=== PATIENT | female | born 1960 | race Caucasian/White ===

== ENCOUNTER → 2020-05-03 08:16 | Outpatient (BNVA) | payer MEDICARE, MEDICAID, SELFPAY | PROVIDERS: Visit Provider Surgery | DX: R10.13 Epigastric pain (principal); R10.11 Right upper quadrant pain; R11.0 Nausea; K21.00 Gastro-esophageal reflux disease with esophagitis, without bleeding; Z98.84 Bariatric surgery status | CPT/HCPCS: 99205 ==

== ENCOUNTER 2020-05-16 15:08 | Outpatient (REF) | payer MEDICARE, MEDICAID, SELFPAY ==
--- NOTE | 2020-05-16 | MM_ITS ---
EXAMINATION: MM SCREENING DIGITAL BREAST TOMOSYNTHESIS, BILATERAL CLINICAL INFORMATION: Screening. Asymptomatic. The lifetime risk of breast cancer based on the Tyrer-Cuzick Model is 7%. COMPARISON: Mammography: 10/27/2017, 03/01/2014 TECHNIQUE: Digital breast tomosynthesis is performed in both the craniocaudal and mediolateral oblique views along with computer-aided detection (CAD). Synthesized 2D images are generated from the tomosynthesis. FINDINGS: There are scattered areas of fibroglandular density (ACR BI-RADS breast composition Category b). There are no significant masses, abnormal calcifications, or other abnormalities. Parenchymal pattern is similar to prior studies. IMPRESSION: No mammographic evidence of malignancy. ASSESSMENT: BI-RADS 1: Negative RECOMMENDATION: Routine annual mammography screening. This patient's information was entered into a reminder system with a target due date for their next mammogram.
== END 2020-05-16 15:09 | disposition home or self-care (01) ==
LOC: HO.MAMMO 15:08
PROVIDERS: PCP Internal Medicine; Visit Provider Internal Medicine
DX: Z12.31 Encounter for screening mammogram for malignant neoplasm of breast (principal)
CPT/HCPCS: 77063; 77067

== ENCOUNTER → 2020-05-25 08:12 | Outpatient (BNVA) | payer MEDICARE, MEDICAID, SELFPAY | PROVIDERS: PCP Internal Medicine; Referring Provider Internal Medicine; Visit Provider Surgery | DX: E66.9 Obesity, unspecified (principal); Z68.26 Body mass index [BMI] 26.0-26.9, adult; R10.13 Epigastric pain; K21.00 Gastro-esophageal reflux disease with esophagitis, without bleeding; Z71.3 Dietary counseling and surveillance | CPT/HCPCS: 99214 ==

== ENCOUNTER → 2020-06-20 08:06 | Outpatient (BNVA) | payer MEDICARE, MEDICAID, SELFPAY | PROVIDERS: Visit Provider Surgery | DX: E66.3 Overweight (principal); Z68.26 Body mass index [BMI] 26.0-26.9, adult; R10.13 Epigastric pain; K21.00 Gastro-esophageal reflux disease with esophagitis, without bleeding; R41.3 Other amnesia; Z98.84 Bariatric surgery status | CPT/HCPCS: Q3014 ==

== ENCOUNTER 2020-06-21 10:20 | Outpatient (REF) | payer MEDICARE, MEDICAID, SELFPAY ==
[2020-06-21 11:03] LABS: MANUAL DIFF FLAG NO
[2020-06-21 11:08] LABS: Basophils Percent Auto 0.4 % (0-2); Eosinophils Absolute Auto 0.3 X10*3/uL (0.0-0.4); Hematocrit 39.9 % (37-47); Hemoglobin 13.1 g/dl (12.0-16.0); Imm Gran Abs Auto 0.01 X10*3/uL (0.00-0.03); Imm Gran Pct Auto 0.2 % (0.0-0.4); Lymphocytes Absolute Auto 1.9 X10*3/uL (1.2-4.9); Lymphocytes Percent Auto 41.4 % (20-40); Mean Corpuscular HGB Conc 32.8 g/dl (31.0-35.0); Mean Corpuscular Volume 91.3 fL (80-98); Mean Platelet Volume 10.7 fL (9.4-12.3); Monocytes Absolute Auto 0.3 X10*3/uL (0.1-1.2); Monocytes Percent Auto 5.8 % (2-11); Neutrophils Absolute Auto 2.2 X10*3/uL (2.0-8.3); Neutrophils Percent Auto 46.2 % (45-73); Platelet Count 189 X10*3/uL (160-400); Red Blood Count 4.37 X10*6/uL (4.20-5.50); Red Cell Distribution Width 12.7 % (11.0-16.0); White Blood Count 4.7 X10*3/uL (4.8-10.8)
[2020-06-21 12:05] LABS: Folate 5.3 ng/mL (> or = 4.0); Vitamin B12 376 pg/mL (200-900)
[2020-06-21 12:29] LABS: Alanine Aminotransferase 41 U/L (0-31); Albumin Level 4.2 g/dL (3.5-5.0); Alkaline Phosphatase 92 U/L (39-117); Anion Gap 8 (12-20); Aspartate Amino Transferase 27 U/L (5-31); Bilirubin Total 0.3 mg/dL (0.0-1.0); Blood Urea Nitrogen 19 mg/dL (9-16); C Reactive Protein 0.07 mg/dL (< or = 0.50); Calcium 8.9 mg/dL (8.4-10.2); Carbon Dioxide 29 mmol/L (22-29); Chloride 108 mmol/L (96-108); Cholesterol 197 mg/dL; Estimated Glomerular Filt Rate > 60; Glucose Random 97 mg/dL (60-115); HDL Cholesterol 37 mg/dL; LDL Cholesterol Calculated 145 mg/dl; Potassium 4.1 mmol/l (3.3-5.1); Sodium 141 mmol/L (135-145); Total Protein 6.9 g/dL (6.5-8.0); Triglycerides 79 mg/dL
[2020-06-21 12:42] LABS: Estimated Average Glucose 111 mg/dL; Hemoglobin A1c % 5.5 %
[2020-06-21 12:49] LABS: TSH reflex Free T4 0.81 mIU/mL (0.32-4.0)
[2020-06-22 18:52] LABS: Calcium (PTHI) 9.2 mg/dL (8.6-10.4); PTHI 34 pg/mL (14-64)
[2020-06-23 09:57] LABS: Insulin Level Total 4.2 uIU/mL
[2020-06-26 12:22] LABS: Vitamin B1 <6 nmol/L (8-30)
[2020-06-27 18:16] LABS: Vitamin A 54 mcg/dL (38-98)
== END 2020-06-21 10:21 | disposition home or self-care (01) ==
LOC: HO.LAB 10:20
PROVIDERS: PCP Internal Medicine; Visit Provider Surgery
DX: R41.3 Other amnesia (principal); R10.13 Epigastric pain; F41.9 Anxiety disorder, unspecified; E66.3 Overweight; F32.9 Major depressive disorder, single episode, unspecified
CPT/HCPCS: 36415; 80053; 80061; 82607; 82746; 83036; 83525; 83970; 84425; 84443; 84590; 85025; 86140

== ENCOUNTER 2020-07-10 06:38 | Outpatient (REF) | payer MEDICARE, MEDICAID, SELFPAY ==
--- NOTE | 2020-07-10 06:45 | CT_ITS ---
EXAMINATION: CT ABDOMEN AND PELVIS WITH CONTRAST CLINICAL INFORMATION: Epigastric pain COMPARISON: Previous CT of the abdomen and pelvis most recent February 2020 TECHNIQUE: Multidetector volumetric images were obtained from the superior aspect of the liver through the pubic symphysis following administration 85 mL of Omnipaque 350 intravenous contrast. Sagittal and coronal reformatted images were obtained on the technologist's workstation. Oral contrast: Yes This CT examination was performed using dose optimization techniques as appropriate, variously including the following: *Automated exposure control *Adjustment of mA and/or kV according to patient size (this includes techniques or standardized protocols for targeted exams where dose is matched to indication/reason for exam; i.e. extremities or head) *Use of iterative reconstruction technique DLP: 543 mGy-cm FINDINGS: LUNG BASES: The visualized lung bases are unremarkable. LIVER, GALLBLADDER, AND BILIARY TREE: The liver is normal in size, shape, and attenuation. No focal hepatic lesion or biliary ductal dilatation is present. The gallbladder has been removed. PANCREAS: Unremarkable. SPLEEN: Unremarkable. ADRENAL GLANDS: Unremarkable. KIDNEYS AND URETERS: The kidneys are normal in size, shape, and attenuation. No hydronephrosis, hydroureter, or calculi seen. No perinephric stranding. BLADDER: Unremarkable. GASTROINTESTINAL TRACT: There are postsurgical changes to the stomach where the surgical suture line adjacent to the greater curvature of the stomach. There is question of mild wall thickening of the distal thoracic esophagus and stomach. The small bowel is unremarkable. There is a large amount of stool in the colon and mild dilatation suggestive of constipation. The appendix appears to have been removed. ABDOMINAL WALL: There are postsurgical changes to the anterior abdominal wall. No hernia is seen. LYMPH NODES: Normal. VASCULAR: Unremarkable. PELVIC VISCERA: The uterus has been removed. No pelvic mass is seen. OSSEOUS STRUCTURES: Postsurgical changes with posterior fusion hardware and disc interspace served as L4-L5. There are degenerative changes of the spine. CT/CT abdomen pelvis w con IMPRESSION: Stable postsurgical changes to the stomach with surgical suture line along the greater curvature. There is question of mild wall thickening of the distal thoracic esophagus and stomach. Constipation.
[2020-07-10] MEDS: Barium Sulfate Oral (Vanilla) 450 ML ORAL.SUSP 900 ML PO (09:25)
[2020-07-10] MEDS: iohexoL 350 MG/ML 100 ML INFUS..BTL 85 ML IV (09:26)
== END 2020-07-10 06:39 | disposition home or self-care (01) ==
LOC: HO.CT 06:38
PROVIDERS: Visit Provider Surgery
DX: R10.13 Epigastric pain (principal); R10.11 Right upper quadrant pain; Z98.84 Bariatric surgery status; Z90.3 Acquired absence of stomach [part of]
CPT/HCPCS: 74177; Q9967

== ENCOUNTER 2020-07-23 09:52 | Outpatient (REF) | payer MEDICARE, MEDICAID, SELFPAY ==
--- NOTE | 2020-07-23 09:55 | US_ITS ---
EXAMINATION: US COMPLETE ABDOMEN WITH LIVER ELASTOGRAPHY CLINICAL INFORMATION: Epigastric pain COMPARISON: CT abdomen of July 10, 2020 and ultrasound of October 27, 2017 TECHNIQUE: Real-time imaging of the abdominal viscera. Noninvasive ultrasound liver fibrosis assessment is performed using Yue ElastPQ point quantification shear wave elastography (pSWE) with a 5 MHz transducer. Multiple elastography samples are obtained. FINDINGS: PANCREAS: Normal. The visualized pancreatic head and body are normal in appearance. The remainder of the pancreas is obscured from visualization by the overlying bowel gas. ABDOMINAL AORTA: The proximal, middle, and distal aortic segments are normal in caliber. INFERIOR VENA CAVA: Visualized portions are normal. LIVER: Normal. The liver demonstrates normal size, contour and echogenicity. No focal lesion or intrahepatic biliary duct dilatation. The right lobe measures 14.8 cm in length. The left lobe measures 8.6 cm in length. There is hepatopedal blood flow seen within the main portal vein. Shear wave elastography provides a median stiffness of 0.98 m/s (reference: normal median stiffness is 0.81 - 1.22 m/s). The IQR/median stiffness to assess sampling precision is 0.14 (reference: optimal IQR/median stiffness is under 0.3). GALLBLADDER: Status post cholecystectomy. COMMON BILE DUCT: Not identified RIGHT KIDNEY: Normal. No hydronephrosis. No renal calculi or focal parenchymal lesions. The kidney measures 10.4 cm in maximum dimension. LEFT KIDNEY: Normal. No hydronephrosis. No renal calculi or focal parenchymal lesions. The kidney measures 11.1 cm in maximum dimension. SPLEEN: Normal. The spleen measures 10.7 cm in maximum dimension. FREE FLUID: None. US/US abdomen comp w elastography IMPRESSION: 1. No significant abnormality identified. 2. Elastography: Liver elastography measurements are within normal (METAVIR Stage F0).
--- NOTE | 2020-07-23 09:55 | FL_ITS ---
EXAMINATION: XR GI SERIES CLINICAL INFORMATION: Epigastric pain. COMPARISON: None TECHNIQUE: Routine upper GI air-contrast study was performed in upright and lying position. FINDINGS: Following oral administration of thin barium, there is normal perfusion of bolus from the oral cavity through the pharynx into the stomach. There is evidence of previous gastric surgery along the greater curvature. There are 2 parts to the stomach, a smaller fundus in the left epigastric region and a slightly larger stomach in the lower epigastric region. There is transient narrowing seen between the 2 stomachs or decreased peristalsis. The distal stomach, duodenal bulb and the sweep are normal caliber. There is normal peristalsis in the distal stomach. Patient does not complain of any pain in the epigastric region. In the midabdomen, patient has pain where the surgical staple is noted and marked on several images. Question source of pain. The small bowel loops are otherwise unremarkable. There is L4 and L5 disc fusion with posterior hardware. FLUOROSCOPY TIME: 3.3 minutes DOSE AREA PRODUCT: 45.125 uGy-m2 (microgray-meter squared) FL/FL upper GI series IMPRESSION: 1. Status post gastric reduction surgery. There are 2 distinct stomach pouches, a smaller one in the upper epigastric region and to the left and a slightly larger stomach in the distal epigastric region. Between the 2 stomachs, there appears to be some kind of narrowing, and slow emptying of proximal or fundal stomach. Patient has no pain in the epigastric region. 2. Patient points to pain in the mid abdomen where there is a surgical staple adjacent to the small bowel loops. Whether there are adhesions in this region, secondary to janet, I am not sure. No such abnormality was seen on the recent CT abdomen exam 2019. On CT, the staple was visualized on axial images 41 through 42/3.
== END 2020-07-23 09:53 | disposition home or self-care (01) ==
LOC: HO.US 09:52
PROVIDERS: Visit Provider Surgery
DX: Z01.818 Encounter for other preprocedural examination (principal); R10.13 Epigastric pain; E66.01 Morbid (severe) obesity due to excess calories; K21.9 Gastro-esophageal reflux disease without esophagitis; Z90.3 Acquired absence of stomach [part of]; Z98.84 Bariatric surgery status
CPT/HCPCS: 74240; 76705; 76981

== ENCOUNTER 2021-01-05 07:30 | Emergency (ER) | payer MEDICARE, MEDICAID, SELFPAY ==
--- NOTE | ~2021-01-05 | XR_ITS ---
EXAMINATION: XR CHEST CLINICAL INFORMATION: Chest pain. COMPARISON: None TECHNIQUE: Frontal view of the chest was obtained. FINDINGS: No significant abnormality is noted involving the heart, lungs, mediastinum, bony thorax or soft tissues. XR/XR chest 1V IMPRESSION: Unremarkable chest examination.
--- NOTE | ~2021-01-05 | CT_ITS ---
EXAMINATION: CT ANGIOGRAM OF THE CHEST WITH AND WITHOUT CONTRAST (CT PULMONARY ANGIOGRAM FOR PE) CLINICAL INFORMATION: Chest pain COMPARISON: Chest x-ray earlier today TECHNIQUE: Prior to contrast administration, noncontrast localization images were obtained. Subsequently, multidetector volumetric imaging was performed from the thoracic inlet to below the diaphragms following the administration of 65 mL Omnipaque 350 intravenous contrast. No contrast reaction reported Sagittal, coronal, and MIP oblique sagittal reformatted images were obtained on the CT workstation, uploaded to PACS, and reviewed. Lung parenchyma evaluation is limited due to respiratory motion artifact. This CT examination was performed using dose optimization techniques as appropriate, variously including the following: *Automated exposure control *Adjustment of mA and/or kV according to patient size (this includes techniques or standardized protocols for targeted exams where dose is matched to indication/reason for exam; i.e. extremities or head) *Use of iterative reconstruction technique Total exam dose-length product 308 mGy-cm FINDINGS: The heart is normal in size. There is no pericardial effusion. No pulmonary arterial filling defect to suggest pulmonary embolus. Nonaneurysmal thoracic aorta. No gross mediastinal lymphadenopathy. Central airways are patent. Lungs are adequately aerated. There is mild dependent opacities bilaterally suggesting atelectasis. Some mild groundglass opacities are also noted dependently within the upper lobes, nonspecific but possibly also atelectasis. There is no lobar consolidation present. No pleural effusion or pneumothorax. No suspicious pulmonary nodules. Visualized portion of the upper abdomen demonstrate postsurgical changes of the stomach. Mild to moderate degenerative changes of the spine. 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 CT/CT angio chest PE protocol IMPRESSION: 1. No pulmonary embolus. 2. Mild diffuse bilateral opacities which are primarily dependent are suspected to represent atelectasis, however, a viral infiltrate would also be within the differential. Clinical correlation is recommended. VTE: negative
--- NOTE | 2021-01-05 07:41 | ECG_ITS ---
Test Reason : CHEST PAIN Blood Pressure : / mmHG Vent. Rate : 060 BPM Atrial Rate : 060 BPM P-R Int : 198 ms QRS Dur : 082 ms QT Int : 402 ms P-R-T Axes : 020 011 021 degrees QTc Int : 402 ms Normal sinus rhythm Normal ECG When compared with ECG of 29-APR-2019 20:48, No significant change was found Referred By: Jacqueline Arellano Electronically Signed By:Thong Renae
[2021-01-05 07:43] VITALS: BP 123/86; PULSE 62; RESP 18; TEMP 36.6; O2SAT 97; BMI 26.2
--- NOTE | 2021-01-05 08:07 | ED.CHESTPAIN ---
HPI - Chest Pain General Chief Complaint: Chest Pain Stated Complaint: chest pain Time Seen by Provider: 01/05/21 08:05 Related Data Home Medications Medication Instructions Recorded Confirmed clonazepam 1 mg tablet 1 mg PO DAILY 05/02/20 fluticasone propionate 50 1 spray INTRANASAL BID 05/02/20 mcg/actuation nasal spray,suspension zolpidem 10 mg tablet 10 mg PO BEDTIME PRN 05/02/20 dicyclomine 10 mg capsule 10 mg PO BID 05/03/20 05/03/20 pantoprazole 40 mg tablet,delayed 40 mg PO DAILY 05/03/20 05/03/20 release Previous Rx's Medication Instructions Recorded sucralfate 100 mg/mL oral 10 ml PO QID 30 Days #1200 ml 05/03/20 suspension thiamine HCl (vitamin B1) 100 mg 100 mg PO DAILY #30 tab 06/29/20 tablet vitamin B12 500 mcg-folic acid 400 1 tab PO DAILY #30 tab 06/29/20 mcg tablet Allergies Allergy/AdvReac Type Severity Reaction Status Date / Time prednisone [PREDNISONE] Allergy Severe DEPRESSION/ Unverified 04/19/20 19:06 ANXIETY diphenhydramine AdvReac Intermediate TACHYCARDIA Unverified 04/19/20 19:06 [From BENADRYL] Benadryl Allergy Unknown racing Uncoded 02/10/19 00:00 heart PMFSH Past Medical History Medical History (Updated 01/05/21 @ 11:12 by Jacqueline Arellano MD) Anxiety Chronic abdominal pain Depression GERD with esophagitis Hypertension Overweight Surgical History History of back surgery History of sleeve gastrectomy Hx of cholecystectomy Hx of laparoscopic gastric banding Family History Family History (Updated 05/02/20 @ 14:25 by Hasmukh Ling CMA) Father No problems noted. Mother No problems noted. Brother No problems noted. Sister No problems noted. Son No problems noted. Daughter No problems noted. Daughter No problems noted. Social History Social History (Updated 05/03/20 @ 10:29 by Benedict Cottrell MD) Alcohol intake: never Advance Directives: No Advance Directives Information Provided: No Patient : No Physical Exam Vital Signs: Vital Signs: Last Vital Signs Temp 97.9 F 01/05/21 09:12 Pulse 51 01/05/21 10:09 Resp 17 06/05/21 10:09 BP 124/79 01/05/21 10:09 Pulse Ox 98 01/05/21 10:09 Body Mass Index 26.2 MDM - Chest Pain MDM Narrative Medical decision making narrative: Patient's well-appearing no distress positive right-sided chest pain. D-dimer elevated. Patient had previous history of gastric bypass surgery. Patient's history not consistent with ACS. Patient's troponin was negative. Patient is 60 years old normal EKG. Her heart score is less than 3. CTA of the chest was done as patient had elevated D-dimer. It was negative for any acute evidence of bacteria pneumonia. No pneumothorax no rib fractures. No PE. Question viral pneumonia. Will discharge patient home. Currently in stable condition. Lab Data Result diagrams: 01/05/21 08:16 01/05/21 08:16 Labs: Lab Results 01/05/21 01/05/21 01/05/21 Range/Units 08:16 08:16 08:16 WBC 6.3 (4.8-10.8) X10*3/uL RBC 3.95 L (4.20-5.50) X10*6/uL Hgb 12.2 (12.0-16.0) g/dl Hct 36.8 L (37-47) % MCV 93.2 (80-98) fL MCH 30.9 (27.0-33.0) pg MCHC 33.2 (31.0-35.0) g/dl RDW 12.1 (11.0-16.0) % Plt Count 188 (160-400) X10*3/uL MPV 9.7 (9.4-12.3) fL Immature Gran % (Auto) 0.2 (0.0-0.4) % Neut % (Auto) 50.4 (45-73) % Lymph % (Auto) 38.7 (20-40) % [place] % (Auto) 7.8 (2-11) % Eos % (Auto) 2.6 (0-4) % Baso % (Auto) 0.3 (0-2) % Lymph # (Auto) 2.4 (1.2-4.9) X10*3/uL [place] # (Auto) 0.5 (0.1-1.2) X10*3/uL Eos # (Auto) 0.2 (0.0-0.4) X10*3/uL Baso # (Auto) 0.0 (0.0-0.2) X10*3/uL Abs Immat Gran (auto) 0.01 (0.00-0.03) X10*3/uL Absolute Neuts (auto) 3.2 (2.0-8.3) X10*3/uL Absolute Nucleated RBC 0.000 (0.0-0.012) X10*3/uL Nucleated RBC % (auto) 0.0 (0.0-0.2) /100WBC D-Dimer 550 NG/ML Hold Blue Top SEE NOTE Sodium 142 (135-145) mmol/L Potassium 3.7 (3.3-5.1) mmol/L Chloride 107 (96-108) mmol/L Carbon Dioxide 27 (22-29) mmol/L Anion Gap 12 (12-20) BUN 13 (9-16) mg/dL Creatinine 0.76 (0.5-1.4) mg/dL Estim Creat Clear Calc 80.1 Estimated GFR > 60 Random Glucose 90 (60-115) mg/dL Calcium 9.0 (8.4-10.2) mg/dL Total Bilirubin 0.3 (0.0-1.0) mg/dL Direct Bilirubin < 0.2 (0.0-0.5) mg/dL AST 24 (5-31) U/L ALT 42 H (0-31) U/L Alkaline Phosphatase 90 (39-117) U/L Troponin I High Sens (<3.5-17.0) ng/L Total Protein 6.1 L (6.5-8.0) g/dL Albumin 3.6 (3.5-5.0) g/dL Lipase < 4 L (8-78) U/L 01/05/21 Range/Units 08:16 WBC (4.8-10.8) X10*3/uL RBC (4.20-5.50) X10*6/uL Hgb (12.0-16.0) g/dl Hct (37-47) % MCV (80-98) fL MCH (27.0-33.0) pg MCHC (31.0-35.0) g/dl RDW (11.0-16.0) % Plt Count (160-400) X10*3/uL MPV (9.4-12.3) fL Immature Gran % (Auto) (0.0-0.4) % Neut % (Auto) (45-73) % Lymph % (Auto) (20-40) % [place] % (Auto) (2-11) % Eos % (Auto) (0-4) % Baso % (Auto) (0-2) % Lymph # (Auto) (1.2-4.9) X10*3/uL [place] # (Auto) (0.1-1.2) X10*3/uL Eos # (Auto) (0.0-0.4) X10*3/uL Baso # (Auto) (0.0-0.2) X10*3/uL Abs Immat Gran (auto) (0.00-0.03) X10*3/uL Absolute Neuts (auto) (2.0-8.3) X10*3/uL Absolute Nucleated RBC (0.0-0.012) X10*3/uL Nucleated RBC % (auto) (0.0-0.2) /100WBC D-Dimer NG/ML Hold Blue Top Sodium (135-145) mmol/L Potassium (3.3-5.1) mmol/L Chloride (96-108) mmol/L Carbon Dioxide (22-29) mmol/L Anion Gap (12-20) BUN (9-16) mg/dL Creatinine (0.5-1.4) mg/dL Estim Creat Clear Calc Estimated GFR Random Glucose (60-115) mg/dL Calcium (8.4-10.2) mg/dL Total Bilirubin (0.0-1.0) mg/dL Direct Bilirubin (0.0-0.5) mg/dL AST (5-31) U/L ALT (0-31) U/L Alkaline Phosphatase (39-117) U/L Troponin I High Sens < 3.5 (<3.5-17.0) ng/L Total Protein (6.5-8.0) g/dL Albumin (3.5-5.0) g/dL Lipase (8-78) U/L ECG Data ECG #1: Interpretation: Sinus pattern heart rate was 60 NV QRS QT within normal limits is no acute ST segment elevation noted. Discharge Plan Discharge Clinical Impression: Chest pain Patient Disposition: Home, Self-Care Instructions: Chest Pain (ED) Prescriptions: No Action vitamin [id number] 500-400 mcg tablet 1 tab PO DAILY Qty: 30 RF: 2 thiamine HCl (vitamin B1) 100 mg tablet 100 mg PO DAILY Qty: 30 RF: 2 pantoprazole 40 mg tablet,delayed release (DR/EC) 40 mg PO DAILY RF: 0 dicyclomine 10 mg capsule 10 mg PO BID RF: 0 sucralfate 100 mg/mL suspension 10 ml PO QID 30 Days Qty: 1200 RF: 2 Referrals: Jayne Ozuna MD [Primary Care Provider] - 2 days
[2021-01-05] MEDS: Aspirin 81 MG TAB.CHEW 324 MG PO (08:20)
[2021-01-05 08:21] LABS: MANUAL DIFF FLAG NO
[2021-01-05 08:22] LABS: Basophils Percent Auto 0.3 % (0-2); Eosinophils Absolute Auto 0.2 X10*3/uL (0.0-0.4); Eosinophils Percent Auto 2.6 % (0-4); Hematocrit 36.8 % (37-47); Hemoglobin 12.2 g/dl (12.0-16.0); Imm Gran Abs Auto 0.01 X10*3/uL (0.00-0.03); Imm Gran Pct Auto 0.2 % (0.0-0.4); Lymphocytes Absolute Auto 2.4 X10*3/uL (1.2-4.9); Lymphocytes Percent Auto 38.7 % (20-40); Mean Corpuscular HGB Conc 33.2 g/dl (31.0-35.0); Mean Corpuscular Hemoglobin 30.9 pg (27.0-33.0); Mean Corpuscular Volume 93.2 fL (80-98); Mean Platelet Volume 9.7 fL (9.4-12.3); Monocytes Absolute Auto 0.5 X10*3/uL (0.1-1.2); Monocytes Percent Auto 7.8 % (2-11); Neutrophils Absolute Auto 3.2 X10*3/uL (2.0-8.3); Neutrophils Percent Auto 50.4 % (45-73); Platelet Count 188 X10*3/uL (160-400); Red Blood Count 3.95 X10*6/uL (4.20-5.50); Red Cell Distribution Width 12.1 % (11.0-16.0); White Blood Count 6.3 X10*3/uL (4.8-10.8)
[2021-01-05 08:32] LABS: D Dimer 550 NG/ML
[2021-01-05 09:04] LABS: Alanine Aminotransferase 42 U/L (0-31); Albumin Level 3.6 g/dL (3.5-5.0); Alkaline Phosphatase 90 U/L (39-117); Anion Gap 12 (12-20); Aspartate Amino Transferase 24 U/L (5-31); Bilirubin Direct < 0.2 mg/dL (0.0-0.5); Bilirubin Total 0.3 mg/dL (0.0-1.0); Blood Urea Nitrogen 13 mg/dL (9-16); Carbon Dioxide 27 mmol/L (22-29); Chloride 107 mmol/L (96-108); Creatinine Clr Calc Pharmacy 80.1; Estimated Glomerular Filt Rate > 60; Glucose Random 90 mg/dL (60-115); Lipase < 4 U/L (8-78); Potassium 3.7 mmol/L (3.3-5.1); Sodium 142 mmol/L (135-145); Total Protein 6.1 g/dL (6.5-8.0)
[2021-01-05 09:05] LABS: Troponin-I High Sensitivity < 3.5 ng/L (<3.5-17.0)
[2021-01-05 09:12] VITALS: BP 123/80; PULSE 65; RESP 15; TEMP 36.6; O2SAT 99
[2021-01-05] MEDS: Ketorolac Tromethamine 15 MG/ML VIAL IV (09:33)
[2021-01-05] MEDS: iohexoL 350 MG/ML 100 ML INFUS..BTL 65 ML IV (10:08)
[2021-01-05 10:09] VITALS: BP 124/79; PULSE 51; RESP 17; O2SAT 98
[2021-01-05 12:00] LABS: COVID-19 Test Negative (Negative)
== END 2021-01-05 12:12 | disposition home or self-care (01) ==
PROVIDERS: Emergency Provider Emergency Medicine Emergency Medical Services; PCP Internal Medicine
DX: R07.9 Chest pain, unspecified (principal); Z20.822 Contact with and (suspected) exposure to COVID-19
CPT/HCPCS: 36415; 71045; 71275; 80048; 80076; 83690; 84484; 85025; 85379; 87635; 93005; 96360; 99284; J1885; Q9967

== ENCOUNTER 2021-01-07 12:52 | Outpatient (REF) | payer MEDICARE, MEDICAID, SELFPAY | END 2021-01-07 12:53 | disposition home or self-care (01) | LOC: HO.LAB 12:52 | PROVIDERS: PCP Internal Medicine; Visit Provider Internal Medicine | DX: Z20.822 Contact with and (suspected) exposure to COVID-19 (principal) | CPT/HCPCS: C9803; U0003; U0005 ==

== ENCOUNTER 2022-02-18 15:45 | Outpatient (REF) | payer OTHER, MEDICAID, SELFPAY ==
--- NOTE | ~2022-02-18 | MM_ITS ---
EXAMINATION: MM SCREENING DIGITAL BREAST TOMOSYNTHESIS, BILATERAL CLINICAL INFORMATION: Screening. Asymptomatic. The lifetime risk of breast cancer based on the Tyrer-Cuzick Model is 4.5%. COMPARISON: Mammography: May 16, 2020 and studies dating back to August 23, 2013 TECHNIQUE: Digital breast tomosynthesis is performed in both the craniocaudal and mediolateral oblique views along with computer-aided detection (CAD). Synthesized 2D images are generated from the tomosynthesis. FINDINGS: There are scattered areas of fibroglandular density (ACR BI-RADS breast composition Category b). There are no significant masses, abnormal calcifications, or other abnormalities. MM/MM tomosynthesis screening BI IMPRESSION: There are no significant changes from prior study. ASSESSMENT: BI-RADS 1: Negative RECOMMENDATION: Routine annual mammography screening. This patient's information was entered into a reminder system with a target due date for their next mammogram.
== END 2022-02-18 15:46 | disposition home or self-care (01) ==
LOC: HO.MAMMO 15:45
PROVIDERS: Visit Provider Internal Medicine
DX: Z12.31 Encounter for screening mammogram for malignant neoplasm of breast (principal)
CPT/HCPCS: 77063; 77067

== ENCOUNTER 2022-02-25 09:44 | Emergency (ER) | payer OTHER, MEDICAID, SELFPAY ==
--- NOTE | ~2022-02-25 | CT_ITS ---
EXAMINATION: CT ABDOMEN AND PELVIS WITHOUT CONTRAST CLINICAL INFORMATION: Left lower quadrant pain. History of diverticulitis. COMPARISON: Prior CT exams from 02/28/2020 and 07/10/2020. TECHNIQUE: Multidetector volumetric imaging was performed from the superior aspect of the liver through the pubic symphysis. Sagittal and coronal reformatted images were obtained on the technologist's workstation. This CT examination was performed using dose optimization techniques as appropriate, variously including the following: *Automated exposure control *Adjustment of mA and/or kV according to patient size (this includes techniques or standardized protocols for targeted exams where dose is matched to indication/reason for exam; i.e. extremities or head) *Use of iterative reconstruction technique DLP: 669 mGy-cm FINDINGS: LUNG BASES: Normal. No pulmonary consolidation or pleural effusion at either lung base. LIVER: The liver has normal size, shape, and attenuation. No evidence of liver mass. GALLBLADDER AND BILIARY TREE: Gallbladder is surgically absent and there is minimal pneumobilia in the left hepatic lobe. The pneumobilia was more obvious on the prior exam from 02/20/2020. No dilated bile ducts. The common bile duct measures up to 0.7 cm transverse diameter. PANCREAS: No edema, pancreatic ductal dilatation or mass. SPLEEN: Normal. ADRENAL GLANDS: Normal. KIDNEYS AND URETERS: The kidneys have normal size and cortical thickness. No perinephric edema. There appears to be a punctate calyceal stone in the left lower pole (image [id number], series 4). No large renal calculi. No hydroureteronephrosis. BLADDER: Normal. No calculi or wall thickening. BOWEL AND PERITONEUM: Again noted are stable lines of the proximal stomach from prior gastric surgery. The stomach is underdistended. There appears to be a very small sliding-type hiatal hernia. No dilated bowel loops. No focal bowel wall thickening, mesenteric fat stranding or free fluid. No pneumoperitoneum. The appendix is surgically absent. ABDOMINAL WALL: Surgical clips of the abdominal wall. No acute findings. No hernia. VASCULATURE: Unremarkable. LYMPH NODES: No pathologic sized lymph nodes in the abdomen or pelvis. No inguinal lymphadenopathy. PELVIC VISCERA: The uterus is surgically absent. No adnexal mass. No pelvic free fluid. Phleboliths are present within the lower pelvis. SKELETAL: Chronic multilevel degenerative arthropathy of the thoracolumbar spine. Status post intervertebral fusion and instrumented posterior spinal fusion at L4-L5. There is moderate loss of disc height and vacuum disc phenomenon at L3-L4. Facet osteoarthritis and chronic minimal degenerative anterolisthesis at L5-S1. Spinal electrodes in posterior epidural space of thoracic spinal canal. The electrodes enter the canal at the T12-L1 level. CT/CT abdomen pelvis wo con IMPRESSION: * No acute imaging abnormalities in the abdomen or pelvis. No specific source of pain is identified. * No evidence of inflammatory change or obstruction along the gastrointestinal tract. * There is a punctate stone of the lower pole of the left kidney. No hydronephrosis.
[2022-02-25 09:50] VITALS: BP 129/93; PULSE 75; RESP 18; TEMP 36.8; O2SAT 97; BMI 29.9
[2022-02-25] MEDS: Ondansetron ODT 4 MG TAB.RAPDIS SUBLINGUAL (09:57)
[2022-02-25 10:27] LABS: MANUAL DIFF FLAG NO
[2022-02-25 10:28] LABS: Basophils Percent Auto 0.3 % (0-2); Eosinophils Absolute Auto 0.1 X10*3/uL (0.0-0.4); Eosinophils Percent Auto 3.6 % (0-4); Hematocrit 36.8 % (37.0-47.0); Hemoglobin 11.8 g/dl (12.0-16.0); Imm Gran Abs Auto 0.01 X10*3/uL (0.00-0.03); Imm Gran Pct Auto 0.3 % (0.0-0.4); Lymphocytes Absolute Auto 1.7 X10*3/uL (1.2-4.9); Mean Corpuscular HGB Conc 32.1 g/dl (31.0-35.0); Mean Corpuscular Hemoglobin 27.5 pg (27.0-33.0); Mean Corpuscular Volume 85.8 fL (80.0-98.0); Monocytes Absolute Auto 0.6 X10*3/uL (0.1-1.2); Neutrophils Absolute Auto 1.5 x10*3/uL (2.0-8.3); Neutrophils Percent Auto 37.8 % (45-73); Platelet Count 193 X10*3/uL (160-400); Red Blood Count 4.29 X10*6/uL (4.20-5.50); Red Cell Distribution Width 14.7 % (11.0-16.0); White Blood Count 3.9 X10*3/uL (4.8-10.8)
[2022-02-25 10:41] LABS: Alanine Aminotransferase 14 U/L (0-31); Albumin Level 4.1 g/dL (3.5-5.0); Alkaline Phosphatase 97 U/L (39-117); Anion Gap 10 (12-20); Aspartate Amino Transferase 16 U/L (5-31); Bilirubin Total 0.3 mg/dL (0.0-1.0); Blood Urea Nitrogen 11 mg/dL (9-16); Calcium 8.9 mg/dL (8.4-10.2); Carbon Dioxide 27 mmol/L (22-29); Chloride 107 mmol/L (96-108); Creatinine Clr Calc Pharmacy 76.1; Estimated Glomerular Filt Rate > 60; Glucose Random 109 mg/dL (60-115); Potassium 3.8 mmol/L (3.3-5.1); Sodium 140 mmol/L (135-145); Total Protein 6.8 g/dL (6.5-8.0)
[2022-02-25 10:48] LABS: Appearance Urine CLEAR; Color Urine YELLOW; Glucose Urine UA NEG (NEG); Leukocyte Esterase Urine NEG (NEG); Nitrite Urine NEG (NEG); Specific Gravity - Urine 1.025 (1.005-1.025); Urine Blood NEG (NEG); Urine Ketones NEG (NEG); Urine Protein NEG (NEG-TRACE)
--- NOTE | 2022-02-25 13:39 | ED_ITS ---
HPI - Abdominal Pain General Chief Complaint: Abdominal Pain Stated Complaint: Diverticulitis Time Seen by Provider: 02/25/22 13:23 Source: patient Mode of arrival: ambulatory Limitations: no limitations History of Present Illness HPI narrative: Patient comes to the emergency room complaining of 3 days of left lower quadrant pain. Patient states she has had history of diverticulitis and it feels very similar. Patient denies nausea vomiting or diarrhea, no fever chills, denies UTI symptoms Related Data Home Medications Medication Instructions Recorded Confirmed clonazepam 1 mg tablet 1 mg PO DAILY 05/02/20 02/25/22 fluticasone propionate 50 1 spray intranasal BID 05/02/20 02/25/22 mcg/actuation nasal spray,suspension (Flonase Allergy Relief) zolpidem 10 mg tablet (Ambien) 10 mg PO BEDTIME PRN 05/02/20 02/25/22 dicyclomine 10 mg capsule 10 mg PO BID 05/03/20 02/25/22 esomeprazole magnesium 40 mg 40 mg PO BID 02/25/22 02/25/22 capsule,delayed release metoclopramide HCl 5 mg tablet 5 mg PO BID 02/25/22 02/25/22 Previous Rx's Medication Instructions Recorded dicyclomine 20 mg tablet 20 mg PO BID #14 tabs 02/25/22 Allergies Allergy/AdvReac Type Severity Reaction Status Date / Time prednisone [PREDNISONE] Allergy Severe DEPRESSION/ Verified 02/25/22 09:50 ANXIETY adhesive tape AdvReac Severe Rash Verified 02/25/22 09:50 diphenhydramine AdvReac Intermediate TACHYCARDIA Verified 02/25/22 09:50 [From BENADRYL] Review of Systems Review of Systems Constitutional : No Weight loss, No Fever, No Chills, No Night Sweats, No Fatigue, No Malaise ENT/Mouth : No Hearing loss, No Ear Pain, No Nasal Congestion, No Sinus Pain, No Hoarseness, No sore throat, No Rhinorrhea, No Swallowing Difficulty Eyes: No Eye Pain, No Swelling, No Redness, No Foreign Body, No Discharge, No Vision Changes Cardiovascular : No Chest Pain, No SOB, No Dyspnea on Exertion, No Orthopnea, No Edema, No Palpitations Respiratory : No Cough, No Sputum, No Wheezing, No Smoke Exposure, No Dyspnea Gastrointestinal : No Nausea, No Vomiting, No Diarrhea, No Constipation, complaining of left lower quadrant pain, no blood/black stools Genitourinary : no irregular bleeding, No Dysuria, No Urinary Frequency, No Hematuria, No Urinary Incontinence, No Urgency, No Flank Pain, No Urinary Flow Changes, No Hesitancy Musculoskeletal : No joint pain, No Myalgias, No Joint Swelling Skin : No Skin Lesions, No rash Neuro : No Weakness, No Numbness, No Paresthesias, No Loss of Consciousness, No Dizziness, No Headache Psych : No Anxiety/Panic, No Depression, No SI/HI/AH/VH, No Social Issues, Heme/Lymph: No Bruising, No Bleeding,No Lymphadenopathy Endocrine : No Polyuria, No Polydipsia, No Temperature Intolerance [facility] Past Medical History Medical History Anxiety Chronic abdominal pain Depression GERD with esophagitis Hypertension Overweight Surgical History History of back surgery History of sleeve gastrectomy Hx of cholecystectomy Hx of laparoscopic gastric banding Family History Family History (Updated 05/02/20 @ 14:25 by Hasmukh Ling [facility]) Father No problems noted. Mother No problems noted. Brother No problems noted. Sister No problems noted. Son No problems noted. Daughter No problems noted. Daughter No problems noted. Social History Social History (Updated 05/03/20 @ 10:29 by Benedict Cottrell MD) Alcohol intake: never Advance Directives: No Advance Directives Information Provided: Yes Physical Exam ED Vital Signs: Vital Signs - 24 hr 02/25/22 09:50 02/25/22 14:00 02/25/22 15:21 Temperature 98.2 F 98.4 F Pulse Rate 75 65 60 Respiratory Rate 18 18 16 Blood Pressure 129/93 H 121/78 129/79 Pulse Oximetry 97 96 95 Oxygen Delivery Method Room Air Room Air Room Air BMI result Body Mass Index 29.9 Const Other: Appearance: Alert. Oriented X3. No acute distress. Well-appearing Eyes: Pupils equal, round and reactive to light. ENT: Pharynx normal. Neck: Normal inspection. Neck supple. No lymph nodes noted. No crepitus CVS: Normal heart rate and rhythm. Pulses normal. Normal S1 and S2 Respiratory: No respiratory distress. Breath sounds normal. No Wheezing. No rales Abdomen: Soft , tenderness to palpation in the left lower quadrant, no CVA tenderness Skin: Skin warm and dry. Normal skin color. Normal skin turgor. Extremities: No lower extremity edema. No Lacerations. No Rash Neuro: Oriented X 3. No motor deficit. No sensory deficit. Moving all extremities. No slurred speech. CN 2 through 12 grossly intact Psych: calm, cooperative, normal affect Course Course Course Narrative: Patient's labs and imaging pending Patient started baseline, CT scan does not show any acute abnormalities, patient is not having diverticulitis at this time. Patient received morphine, prochlorperazine. Previously today, patient had 1 dose of sublingual ondansetron. I discussed the lab and imaging with the patient, at this time, patient states she feels better, she declined any more nausea or pain medication. MDM - Abdominal Pain Lab Data Result diagrams: 02/25/22 10:22 02/25/22 10:22 Labs: Lab Results 02/25/22 02/25/22 02/25/22 Range/Units 10:22 10:22 10:29 WBC 3.9 L (4.8-10.8) X10*3/uL RBC 4.29 (4.20-5.50) X10*6/uL Hgb 11.8 L (12.0-16.0) g/dl Hct 36.8 L (37.0-47.0) % MCV 85.8 (80.0-98.0) fL MCH 27.5 (27.0-33.0) pg MCHC 32.1 (31.0-35.0) g/dl RDW 14.7 (11.0-16.0) % Plt Count 193 (160-400) X10*3/uL MPV 10.0 (9.4-12.3) fL Immature Gran % (Auto) 0.3 (0.0-0.4) % Neut % (Auto) 37.8 L (45-73) % Lymph % (Auto) 43.0 H (20-40) % [place] % (Auto) 15.0 H (2-11) % Eos % (Auto) 3.6 (0-4) % Baso % (Auto) 0.3 (0-2) % Lymph # (Auto) 1.7 (1.2-4.9) X10*3/uL [place] # (Auto) 0.6 (0.1-1.2) X10*3/uL Eos # (Auto) 0.1 (0.0-0.4) X10*3/uL Baso # (Auto) 0.0 (0.0-0.2) X10*3/uL Abs Immat Gran (auto) 0.01 (0.00-0.03) X10*3/uL Absolute Neuts (auto) 1.5 L (2.0-8.3) x10*3/uL Absolute Nucleated RBC 0.000 (0.0-0.012) X10*3/uL Nucleated RBC % (auto) 0.0 (0.0-0.2) /100WBC Sodium 140 (135-145) mmol/L Potassium 3.8 (3.3-5.1) mmol/L Chloride 107 (96-108) mmol/L Carbon Dioxide 27 (22-29) mmol/L Anion Gap 10 L (12-20) BUN 11 (9-16) mg/dL Creatinine 0.84 (0.5-1.4) mg/dL Estim Creat Clear Calc 76.1 Estimated GFR > 60 Random Glucose 109 (60-115) mg/dL Calcium 8.9 (8.4-10.2) mg/dL Total Bilirubin 0.3 (0.0-1.0) mg/dL AST 16 (5-31) U/L ALT 14 (0-31) U/L Alkaline Phosphatase 97 (39-117) U/L Total Protein 6.8 (6.5-8.0) g/dL Albumin 4.1 (3.5-5.0) g/dL Urine Color YELLOW Urine Appearance CLEAR Urine pH 6.0 (5.0-8.0) Ur Specific [place] 1.025 (1.005-1.025) Urine Protein NEG (NEG-TRACE) MG/DL Urine Glucose (UA) NEG (NEG) MG/DL Urine Ketones NEG (NEG) MG/DL Urine Blood NEG (NEG) Urine Nitrite NEG (NEG) Ur Leukocyte Esterase NEG (NEG) Discharge Plan Discharge Clinical Impression: Abdominal pain Patient Disposition: Home, Self-Care Instructions: Abdominal Pain (ED) Additional Instructions: Please follow-up with your primary care physician tomorrow. If you have any worsening or new symptoms, please return to the emergency room or call 911 Prescriptions: New dicyclomine 20 mg tablet 20 mg PO BID Qty: 14 0RF No Action dicyclomine 10 mg capsule 10 mg PO BID zolpidem [Ambien] 10 mg tablet 10 mg PO BEDTIME PRN clonazepam 1 mg tablet 1 mg PO DAILY fluticasone propionate [Flonase Allergy Relief] 50 mcg/actuation spray,suspension 1 spray intranasal BID Rx Instructions: administer into each nostril esomeprazole magnesium 40 mg capsule,delayed release(DR/EC) 40 mg PO BID metoclopramide HCl 5 mg tablet 5 mg PO BID
[2022-02-25 14:00] VITALS: BP 121/78; PULSE 65; RESP 18; TEMP 36.9; O2SAT 96
[2022-02-25] MEDS: Morphine Sulfate 4 MG/ML CARTRIDGE IVPUSH (15:18)
[2022-02-25] MEDS: Prochlorperazine Edisylate 10 MG/2 ML VIAL IVPUSH (15:18)
[2022-02-25 15:21] VITALS: BP 129/79; PULSE 60; RESP 16; O2SAT 95
== END 2022-02-25 16:56 | disposition home or self-care (01) ==
PROVIDERS: Emergency Provider Emergency Medicine; PCP Internal Medicine
DX: R10.32 Left lower quadrant pain (principal); E66.3 Overweight; Z68.29 Body mass index [BMI] 29.0-29.9, adult; Z90.3 Acquired absence of stomach [part of]; Z90.49 Acquired absence of other specified parts of digestive tract
CPT/HCPCS: 36415; 74176; 80053; 81003; 85025; 96374; 96375; 99202; 99284; J2270

== ENCOUNTER 2022-02-26 12:22 | Outpatient (REF) | payer OTHER, MEDICAID, SELFPAY ==
--- NOTE | ~2022-02-26 | XR_ITS ---
EXAMINATION: BILATERAL KNEE X-RAY CLINICAL INFORMATION: Pain COMPARISON: None TECHNIQUE: 3 views of each knee FINDINGS: Bone alignment is normal. No fracture or dislocation is seen. The joint spaces are normal. There is no joint effusion. XR/XR knee RT 3V IMPRESSION: Unremarkable exam.
--- NOTE | ~2022-02-26 | XR_ITS ---
EXAMINATION: BILATERAL SHOULDER X-RAY CLINICAL INFORMATION: Pain COMPARISON: None TECHNIQUE: 4 views of each shoulder FINDINGS: Right: Bone alignment is normal. No fracture or dislocation is seen. The glenohumeral joint is normal. There is arthritis at the acromioclavicular joint. There are degenerative changes of the greater tuberosity with some increased sclerosis and cystic changes. Soft tissues are unremarkable. Left: Bone alignment is normal. No fracture or dislocation is seen. The glenohumeral joint is normal. There is arthritis at the acromioclavicular joint. There are degenerative changes of the greater tuberosity with some increased sclerosis and cystic changes. Soft tissues are unremarkable. XR/XR shoulder LT min 2V IMPRESSION: Bilateral degenerative changes.
--- NOTE | ~2022-02-26 | XR_ITS ---
EXAMINATION: BILATERAL KNEE X-RAY CLINICAL INFORMATION: Pain COMPARISON: None TECHNIQUE: 3 views of each knee FINDINGS: Bone alignment is normal. No fracture or dislocation is seen. The joint spaces are normal. There is no joint effusion. XR/XR knee LT 3V IMPRESSION: Unremarkable exam.
--- NOTE | ~2022-02-26 | XR_ITS ---
EXAMINATION: BILATERAL SHOULDER X-RAY CLINICAL INFORMATION: Pain COMPARISON: None TECHNIQUE: 4 views of each shoulder FINDINGS: Right: Bone alignment is normal. No fracture or dislocation is seen. The glenohumeral joint is normal. There is arthritis at the acromioclavicular joint. There are degenerative changes of the greater tuberosity with some increased sclerosis and cystic changes. Soft tissues are unremarkable. Left: Bone alignment is normal. No fracture or dislocation is seen. The glenohumeral joint is normal. There is arthritis at the acromioclavicular joint. There are degenerative changes of the greater tuberosity with some increased sclerosis and cystic changes. Soft tissues are unremarkable. XR/XR shoulder RT min 2V IMPRESSION: Bilateral degenerative changes.
== END 2022-02-26 12:23 | disposition home or self-care (01) ==
LOC: HO.XRAY 12:22
PROVIDERS: PCP Internal Medicine; Visit Provider Nurse Practitioner Family
DX: M25.561 Pain in right knee (principal); M25.562 Pain in left knee; M25.511 Pain in right shoulder; M25.512 Pain in left shoulder
CPT/HCPCS: 73030; 73562

== ENCOUNTER 2022-03-11 06:06 | Outpatient (REF) | payer MEDICARE, MEDICAID, SELFPAY | END 2022-03-11 06:07 | disposition home or self-care (01) | LOC: HO.RADIR 06:06 | PROVIDERS: Visit Provider Anesthesiology | DX: Z13.89 Encounter for screening for other disorder (principal) | CPT/HCPCS: J1100; J3300; Q3014 ==

== ENCOUNTER 2022-03-20 10:19 | Day surgery (SDC) | payer MEDICARE, SELFPAY ==
--- NOTE | ~2022-03-20 | FL_ITS ---
EXAMINATION: XR FLUOROSCOPY WITH IMAGES CLINICAL INFORMATION: Right shoulder injection. COMPARISON: None. TECHNIQUE: Fluoroscopy performed by Dr. Brandon Lee Fluoroscopy time: 20.7 seconds. Cumulative Dose: 1.81 mGy Images: 1 FINDINGS: An image demonstrates the left shoulder. Some contrast is in the shoulder joint. Some contrast may be in the rotator cuff. FL/FL guidance in OR IMPRESSION: Fluoroscopy and spot films provided to Dr. Brandon Lee for shoulder injection.
--- NOTE | 2022-03-20 11:01 | HO.ANESPROP2 ---
[facility] Active Problems Active Problems: All Active Problems (Updated 02/26/22 @ 00:02 by Jorge Saldaña) Postlaminectomy syndrome, lumbar (Acute) Bilateral shoulder pain (Acute) Bilateral knee pain (Acute) History of sleeve gastrectomy (Acute) Stricture esophagus (Acute) Memory loss (Acute) Overweight (Acute) Chronic abdominal pain (Acute) Epigastric pain (Acute) Depression (Acute) Anxiety (Acute) GERD with esophagitis (Acute) Past Medical History Medical History Anxiety Chronic abdominal pain Depression GERD with esophagitis Hypertension Overweight Family History Family History (Updated 05/02/20 @ 14:25 by Hasmukh Ling CMA) Father No problems noted. Mother No problems noted. Brother No problems noted. Sister No problems noted. Son No problems noted. Daughter No problems noted. Daughter No problems noted. Family history of problems with anesthesia: No Surgical History Surgical History History of back surgery History of sleeve gastrectomy Hx of cholecystectomy Hx of laparoscopic gastric banding History of Problems with Anesthesia: No Social History Social History (Updated 05/03/20 @ 10:29 by Benedict Cottrell MD) Alcohol intake: never Advance Directives: No Advance Directives Information Provided: Yes Meds Allergies Allergy/AdvReac Type Severity Reaction Status Date / Time prednisone [PREDNISONE] Allergy Severe DEPRESSION/ Verified 03/11/22 09:19 ANXIETY adhesive tape AdvReac Severe Rash Verified 03/11/22 09:19 diphenhydramine AdvReac Intermediate TACHYCARDIA Verified 03/11/22 09:19 [From BENADRYL] Home Medications Medication Instructions Recorded Confirmed Last Taken Type clonazepam 1 mg tablet 1 mg PO DAILY 05/02/20 02/25/22 Unknown History fluticasone propionate 50 1 spray intranasal BID 05/02/20 02/25/22 Unknown History mcg/actuation nasal spray,suspension (Flonase Allergy Relief) zolpidem 10 mg tablet (Ambien) 10 mg PO BEDTIME PRN 05/02/20 02/25/22 Unknown History dicyclomine 10 mg capsule 10 mg PO BID 05/03/20 02/25/22 Unknown History esomeprazole magnesium 40 mg 40 mg PO BID 02/25/22 02/25/22 Unknown History capsule,delayed release metoclopramide HCl 5 mg tablet 5 mg PO BID 02/25/22 02/25/22 Unknown History cholestyramine (with sugar) 4 gram 0.5 ea PO BID 03/11/22 Unknown History powder for susp in a packet omeprazole 40 mg capsule,delayed 40 mg PO BID 03/11/22 Unknown History release sennosides 8.6 mg-docusate sodium 2 tab PO DAILY 03/11/22 Unknown History 50 mg tablet (Senna-Time S) venlafaxine 75 mg capsule,extended 225 mg PO QAM 03/11/22 Unknown History release 24 hr Exam Exam Date and Time: March 20, 2022 1101 Air[address] Mallampati Class: II TM Dist: >3cm Neck ROM: Full Heart: rrr Lungs: clear Assessment and Plan Final Anesthetic Review Family History of Problems with Anesthesia: No History of Problems with Anesthesia: No NPO: Yes ASA Class: II Final Preanesthetic Review: No Changes in Pt Med Stat, Meds/Allgs Chart Reviewed, Consent Obtained/Reviewed and Anes Risks/Benef Reviewed Patient Risk: Intermediate Procedure Risk: Low Anesthetic Plan Anesthetic Plan: MAC: Disposition: Standard PACU
[2022-03-20 11:05] VITALS: BMI 29.1
[2022-03-20 11:08] VITALS: BP 133/78; PULSE 67; RESP 17; TEMP 36.5; O2SAT 98
--- NOTE | 2022-03-20 12:27 | MHC.SHP ---
Pre-Procedural Eval Section A Date of Service: 03/20/22 The patient is an INPATIENT: No Changes since office visit: Yes Patient answered all questions The History & Physical has been completed within 30 days and I have reviewed it.: No Section B Chief Complaint: Right and left shoulder pain Details of Present Illness: right shoulder pain Relevant Family History (Specify if Yes): No Relevant Social History: None Present Medications: None Medical History: No relevant PMH History of Previous Operations: No relevant previous surgery Allergies: Allergies Allergy/AdvReac Type Severity Reaction Status Date / Time prednisone [PREDNISONE] Allergy Severe DEPRESSION/ Verified 03/11/22 09:19 ANXIETY adhesive tape AdvReac Severe Rash Verified 03/11/22 09:19 diphenhydramine AdvReac Intermediate TACHYCARDIA Verified 03/11/22 09:19 [From BENADRYL] Review of Systems Sugical H&P ROS: Negative: Cardiovascular, Respiratory, Neurological, Psychiatric, Hem-Onc, Allergic/Immunologic, Gastrointestinal, Genitourinary, Integumentary, Endocrine and Eyes/Ears/Nose/Throat and Yes, Specify: Constitution (obesity) and Musculoskeletal (arthritis) Exam Surgical H&P Exam: Normal: HEENT, Normal: Heart, Normal: Lungs, Normal: Extremities, Normal: Skin and Normal: Neurological and Significant Findings: Abdomen (enlarged 2 to i/a + s/q fat) Plan Diagnosis/Plan: Unchanged I have reviewed the history and physical and performed a pertinent physical examination on my patient. No changes have occurred unless specified.
--- NOTE | 2022-03-20 12:43 | W.PM.OPN ---
Operative Note Operative Note Date of Service: 03/20/22 Narrative: right intra-articular shoulder injection. Informed consent was explained thoroughly to the patient.? All questions about benefits and risks for the procedure were answered.Patient came to the operating room she was positioned prone on the operating table with the pillow under her chest. Her right shoulder scapular area and right side of the neck were prepped with ChloraPrep and draped with sterile utility towels.? C-arm was brought of the operating field and picture of the right shoulder joint was demonstrated on the screen. The posterior lateral portion of the joint was chosen as the target of the injection.? The projection of the target to the skin was injected with the small amount of lidocaine 2%.? After that 22 gauge 3-1/2 inch needle was driven to were the joint in tunnel vision fashion.? When needle entered the capsule of the joint injection of the contrast was performed demonstrating intra-articular spread of the contrast.?At this moment injection of the treatment solution containing ropivacaine 0.5% mixed with Kenalog 40 mg was performed into the joint.? Upon completion of the injection the needle was removed and sterile Band-Aid was applied.? The patient tolerated procedure well she was taken outside of the operating room to recovery room where she recovered uneventfully.?
--- NOTE | 2022-03-20 13:10 | PM.OP ---
Brief Operative Note Date of Service: 03/20/22 Pre-op diagnosis: right shoulder arthritis Post-op diagnosis: same Procedure: intraarticular right shoulder injection Implants: none Surgeon: Brandon Lee MD Was an Business Instructor used for this Procedure?: No Estimated blood loss (mL): 0 Condition: stable Disposition: PACU
[2022-03-20 13:14] VITALS: BP 118/72; PULSE 58; RESP 16; TEMP 36.3; O2SAT 93
[2022-03-20 13:28] VITALS: BP 143/84; PULSE 54; RESP 16; O2SAT 96
[2022-03-20 13:40] VITALS: BP 150/83; PULSE 59; RESP 16; TEMP 36.8; O2SAT 98
== END 2022-03-20 14:18 | disposition home or self-care (01) ==
PROVIDERS: PCP Anesthesiology; Visit Provider Anesthesiology
PROC: (CPT 20610; principal; 2022-03-20 12:20)
DX: M25.511 Pain in right shoulder (principal); G89.29 Other chronic pain; M54.50 Low back pain, unspecified; Z96.82 Presence of neurostimulator; R10.9 Unspecified abdominal pain; E66.3 Overweight; I10 Essential (primary) hypertension; Z79.899 Other long term (current) drug therapy; Z88.8 Allergy status to other drugs, medicaments and biological substances; Z98.84 Bariatric surgery status; Z90.49 Acquired absence of other specified parts of digestive tract
CPT/HCPCS: 20610; J1100; J2250; J3010; J3300

== ENCOUNTER 2022-04-09 09:47 | Outpatient (REF) | payer OTHER, SELFPAY ==
[2022-04-09 10:37] LABS: MANUAL DIFF FLAG NO
[2022-04-09 12:01] LABS: Basophils Percent Auto 0.3 % (0-2); Eosinophils Absolute Auto 0.2 X10*3/uL (0.0-0.4); Eosinophils Percent Auto 2.5 % (0-4); Hematocrit 38.9 % (37.0-47.0); Hemoglobin 12.4 g/dl (12.0-16.0); Imm Gran Abs Auto 0.02 X10*3/uL (0.00-0.03); Imm Gran Pct Auto 0.3 % (0.0-0.4); Lymphocytes Absolute Auto 2.1 X10*3/uL (1.2-4.9); Lymphocytes Percent Auto 34.5 % (20-40); Mean Corpuscular HGB Conc 31.9 g/dl (31.0-35.0); Mean Corpuscular Hemoglobin 28.5 pg (27.0-33.0); Mean Corpuscular Volume 89.4 fL (80.0-98.0); Monocytes Absolute Auto 0.4 X10*3/uL (0.1-1.2); Monocytes Percent Auto 6.7 % (2-11); Neutrophils Absolute Auto 3.3 x10*3/uL (2.0-8.3); Neutrophils Percent Auto 55.7 % (45-73); Platelet Count 223 X10*3/uL (160-400); Red Blood Count 4.35 X10*6/uL (4.20-5.50); Red Cell Distribution Width 13.7 % (11.0-16.0)
[2022-04-09 12:37] LABS: Alanine Aminotransferase 16 U/L (0-31); Albumin Level 4.2 g/dL (3.5-5.0); Alkaline Phosphatase 103 U/L (39-117); Anion Gap 14 (12-20); Aspartate Amino Transferase 17 U/L (5-31); Bilirubin Total 0.3 mg/dL (0.0-1.0); Blood Urea Nitrogen 10 mg/dL (9-16); Calcium 8.8 mg/dL (8.4-10.2); Carbon Dioxide 25 mmol/L (22-29); Chloride 105 mmol/L (96-108); Cholesterol 195 mg/dL; Estimated Glomerular Filt Rate > 60; Glucose Fasting 89 mg/dL (60-99); HDL Cholesterol 38 mg/dL; LDL Cholesterol Calculated 137 mg/dl; Potassium 4.3 mmol/L (3.3-5.1); Sodium 140 mmol/L (135-145); Triglycerides 100 mg/dL
[2022-04-09 13:33] LABS: Folate 7.3 ng/mL (> or = 4.0); Vitamin B12 192 pg/mL (200-900)
[2022-04-14 22:16] LABS: TS Negative Control Passed; TS Panel A 0; TS Panel B 0; TS Positive Control Passed; TSpotTB Negative (Negative)
== END 2022-04-09 09:48 | disposition home or self-care (01) ==
LOC: HO.LAB 09:47
PROVIDERS: PCP Internal Medicine; Visit Provider Internal Medicine
DX: Z00.00 Encounter for general adult medical examination without abnormal findings (principal); Z11.1 Encounter for screening for respiratory tuberculosis; N30.00 Acute cystitis without hematuria; I10 Essential (primary) hypertension; F33.41 Major depressive disorder, recurrent, in partial remission
CPT/HCPCS: 36415; 80053; 80061; 82607; 82746; 85025; 86481

== ENCOUNTER 2022-04-15 13:58 | Outpatient (REF) | payer OTHER, SELFPAY | END 2022-04-15 13:59 | disposition home or self-care (01) | LOC: HO.LAB 13:58 | PROVIDERS: Visit Provider Internal Medicine | DX: N39.0 Urinary tract infection, site not specified (principal) | CPT/HCPCS: 87086; 87088; 87186 ==

== ENCOUNTER 2022-04-17 15:15 | Outpatient (REF) | payer OTHER, SELFPAY ==
--- NOTE | ~2022-04-17 | XR_ITS ---
EXAMINATION: XR ELBOW, RIGHT CLINICAL INFORMATION: Pain. COMPARISON: None TECHNIQUE: AP, lateral, and oblique views of the right elbow. FINDINGS: The bones and soft tissues are normal. No fracture or joint effusion. Alignment is anatomic. Joint spaces are maintained. XR/XR elbow RT 2V IMPRESSION: Normal right elbow.
--- NOTE | ~2022-04-17 | XR_ITS ---
EXAMINATION: XR KNEE, RIGHT CLINICAL INFORMATION: Pain. COMPARISON: Radiographs dated 02/26/2022. TECHNIQUE: AP, lateral and sunrise views of the right knee. FINDINGS: Bones and soft tissues are normal. No fracture or dislocation. There is a small joint effusion. Alignment is anatomic. Joint spaces are well maintained. No abnormal soft tissue calcification. XR/XR knee RT 3V IMPRESSION: 1. No fracture, dislocation or unusual degenerative change is seen of the right knee. 2. There is a small right knee joint effusion.
== END 2022-04-17 15:16 | disposition home or self-care (01) ==
LOC: HO.XRAY 15:15
PROVIDERS: Visit Provider Nurse Practitioner Family
DX: M25.511 Pain in right shoulder (principal); M25.521 Pain in right elbow; M25.561 Pain in right knee; Z79.899 Other long term (current) drug therapy
CPT/HCPCS: 73070; 73562; 99212

== ENCOUNTER 2022-05-02 19:23 | Emergency (ER) | payer OTHER, SELFPAY ==
--- NOTE | ~2022-05-02 | CT_ITS ---
EXAMINATION: CT ABDOMEN AND PELVIS WITHOUT CONTRAST CLINICAL INFORMATION: Lower abdominal pain COMPARISON: CT scan abdomen pelvis 02/25/2022 TECHNIQUE: Multidetector volumetric imaging was performed from the superior aspect of the liver through the pubic symphysis. Sagittal and coronal reformatted images were obtained on the technologist's workstation. This CT examination was performed using dose optimization techniques as appropriate, variously including the following: *Automated exposure control *Adjustment of mA and/or kV according to patient size (this includes techniques or standardized protocols for targeted exams where dose is matched to indication/reason for exam; i.e. extremities or head) *Use of iterative reconstruction technique DLP: 693 mGy-cm FINDINGS: LUNG BASES: The visualized lung bases are unremarkable. LIVER, GALLBLADDER, AND BILIARY TREE: The liver is normal in size, shape, and attenuation. No focal hepatic lesion or biliary ductal dilatation is present. Gallbladder surgically absent. No bile duct dilatation. PANCREAS: Unremarkable. SPLEEN: Unremarkable. ADRENAL GLANDS: Unremarkable. KIDNEYS AND URETERS: No change of the tiny stone lower pole left kidney. No ureteral calculi or hydronephrosis. Kidneys are of normal size and contour cortical thickness. BLADDER: Unremarkable. GASTROINTESTINAL TRACT: Status post gastric surgery. No acute change of the bowel. No bowel obstruction. No bowel wall thickening or edema. The appendix is surgically absent. Small hiatal hernia. ABDOMINAL WALL: No significant hernia is appreciated. LYMPH NODES: Normal. VASCULAR: Unremarkable. PELVIC VISCERA: Uterus is absent. No adnexal abnormality. OSSEOUS STRUCTURES: Status post fusion L4-L5. Neural stimulator device percutaneous pattern of the right hip. Probes extending into the spinal canal at the lower thoracic spine. CT/CT abdomen pelvis wo IV con IMPRESSION: No acute abnormality CT scan abdomen pelvis. Fleischner guidelines were followed.
[2022-05-02 19:31] VITALS: BP 138/78; PULSE 82; RESP 18; TEMP 37.2; O2SAT 100; BMI 29.1
[2022-05-02 20:43] LABS: MANUAL DIFF FLAG NO
[2022-05-02 20:45] LABS: Basophils Percent Auto 0.6 % (0-2); Eosinophils Absolute Auto 0.3 X10*3/uL (0.0-0.4); Eosinophils Percent Auto 4.6 % (0-4); Hematocrit 37.6 % (37.0-47.0); Hemoglobin 12.1 g/dl (12.0-16.0); Imm Gran Abs Auto 0.02 X10*3/uL (0.00-0.03); Imm Gran Pct Auto 0.3 % (0.0-0.4); Lymphocytes Absolute Auto 2.3 X10*3/uL (1.2-4.9); Mean Corpuscular HGB Conc 32.2 g/dl (31.0-35.0); Mean Corpuscular Hemoglobin 28.2 pg (27.0-33.0); Mean Corpuscular Volume 87.6 fL (80.0-98.0); Mean Platelet Volume 10.5 fL (9.4-12.3); Monocytes Absolute Auto 0.7 X10*3/uL (0.1-1.2); Monocytes Percent Auto 9.9 % (2-11); Neutrophils Absolute Auto 3.6 x10*3/uL (2.0-8.3); Neutrophils Percent Auto 51.6 % (45-73); Platelet Count 215 X10*3/uL (160-400); Red Blood Count 4.29 X10*6/uL (4.20-5.50); Red Cell Distribution Width 12.8 % (11.0-16.0)
[2022-05-02 20:46] LABS: Appearance Urine Clear; Color Urine Yellow; Glucose Urine UA Negative (Negative); Leukocyte Esterase Urine Small (1+) (Negative); Nitrite Urine Negative (Negative); Specific Gravity - Urine 1.015 (1.005-1.025); UMIC TRIGGER UACC YES; Urine Blood Negative (Negative); Urine Ketones Trace mg/dL (Negative); Urine Protein Negative (Neg-Trace)
[2022-05-02 20:56] LABS: Bacteria Urine None Seen (None Seen); Hyaline Casts Urine 0-2 /LPF (0-2); RBC Urine 0-2 /HPF (0-2); UACC Culture Trigger YES; WBC Urine 0-5 /HPF (0-5)
[2022-05-02 21:11] LABS: Alanine Aminotransferase 14 U/L (0-31); Albumin Level 4.4 g/dL (3.5-5.0); Alkaline Phosphatase 117 U/L (39-117); Anion Gap 14 (12-20); Aspartate Amino Transferase 17 U/L (5-31); Bilirubin Total 0.2 mg/dL (0.0-1.0); Blood Urea Nitrogen 14 mg/dL (9-16); Calcium 9.1 mg/dL (8.4-10.2); Carbon Dioxide 24 mmol/L (22-29); Chloride 108 mmol/L (96-108); Creatinine Clr Calc Pharmacy 67.1; Estimated Glomerular Filt Rate > 60; Glucose Random 92 mg/dL (60-115); Potassium 4.1 mmol/L (3.3-5.1); Sodium 142 mmol/L (135-145); Total Protein 7.1 g/dL (6.5-8.0)
--- OUTSIDE RECORDS SUMMARY | 2022-05-02 21:43 | XMS_ITS | Continuity of Care Document ---
:1960 Author Organization [facility] Address [address] [place] [id number]- Care Team Providers Name Role Phone Jayne Ozuna MD Primary Care Physician Encounter [facility] [place] Date(s): 05/03/21 - 06/02/21 [facility] [address] [place] [id number]- Allergies, Adverse Reactions, Alerts Substance Reaction Severity Status predniSONE Severe anxiety (panic) Active Flexeril Palpitations Active Adhesive Bandage Active Medications Ambien Tablet See Instructions, 0, 0, 09/03/07 19:16:08, 5 mg By Mouth, Print EMA Number, Constant Indicator Start Date: 09/03/07 Status: OrderedFlonase 50 mcg/inh nasal spray 1 sprays, Nares, Both, 2 times a day, # 16 Gm, 0 Refills, Maintenance, 07/12/18 10:04:39 EST, [place] Start Date: 07/12/18 Status: OrderedGabapentin = 300 mg, By Mouth, 3 times a day, 0 Refills, Maintenance, 02/22/18 9:52:40 EDT Start Date: 02/22/18 Status: OrderedKlonopin 0.5 mg oral tablet 2 mg, 4, tablet, By Mouth, Daily at bedtime, PRN prn anxiety, 0 Refills Start Date: 02/17/06 Status: OrderedMeclizine By Mouth, 3 times a day, 0 Refills, Maintenance, 07/12/18 10:05:49 EST Start Date: 07/12/18 Status: OrderedSimvastatin By Mouth, 0 Refills, Maintenance, 02/22/18 9:52:52 EDT Start Date: 02/22/18 Status: Ordered Problem List Condition Effective Dates Status Health Status Informant Lumbar facet arthropathy(Confirmed) Active Benign neoplasm of colon(Confirmed)1 05/11/13 Active Lumbar radiculitis(Confirmed) Active Myofascial pain syndrome(Confirmed) Active 1repeat colonoscopy in 5 years Social History Social History Type Response Smoking Status Former smoker; Tobacco user in household: No; Type: Cigarettes; Interested in cessation: No; Tobacco use times per day: 00; entered on: 09/04/15 Sex
--- OUTSIDE RECORDS SUMMARY | 2022-05-02 21:43 | XMS_ITS | Continuity of Care Document ---
:1960 Author Organization [facility] Address [address] [place] [id number]- Care Team Providers Name Role Phone Laith WICK, Jayne Crawford Primary Care Physician Encounter [facility] [place] Date(s): 08/14/21 - 09/13/21 [facility] [address] [place] [id number] Attending Physician: Kristina Brown Admitting Physician: Kristina Brown Referring Physician: AdmtrKristina Allergies, Adverse Reactions, Alerts Substance Reaction Severity Status predniSONE Severe anxiety (panic) Active Flexeril Palpitations Active Adhesive Bandage Active Medications Ambien Tablet See Instructions, 0, 0, 09/03/07 19:16:08, 5 mg By Mouth, Print EMA Number, Constant Indicator Start Date: 09/03/07 Status: OrderedFlonase 50 mcg/inh nasal spray 1 sprays, Nares, Both, 2 times a day, # 16 Gm, 0 Refills, Maintenance, 07/12/18 10:04:39 EST, [place] Start Date: 07/12/18 Status: OrderedGabapentin = 300 [...] 07/12/18 10:05:49 EST Start Date: 07/12/18 Status: Ordered Problem List Condition Effective Dates [...]
--- OUTSIDE RECORDS SUMMARY | 2022-05-02 21:43 | XMS_ITS ---
:1960 Author Organization [facility] Address [address] [place] [address] Care Team Providers Name Role Phone Israel Kruger Unavailable Unavailable PROBLEMS Type Condition ICD9-CM TCB02-TW Onset Condition SNOMED Cod e Code Code Dates Status Problem Encounter for Z12.11 Active 659820 004 screening for malignant neoplasm of colon Problem Gastroesophageal K21.9 Active 235 366190 reflux disease, esophagitis presence not specified Problem Hypertension I10 Active 4029376 3 Problem Erosive esophagitis K22.10 Active 54224037 Problem Encounter for Z12.12 Active 064249 007 screening for malignant neoplasm of rectum Problem Diverticulitis K57.92 Active [address] scan, R93.3 Active 44 2506789 gastrointestinal tract Problem Weight loss R63.4 Active 83191723 Problem Epigastric abdominal R10.13 Active 70425632 pain Problem Early satiety R68.81 Active 762055 002 ALLERGIES No Known Allergies ENCOUNTERS Encounter Location Date Diagnosis [place] [address] Nov, [facility] [address] [place] [address] May, Divertic ulitis K57.92 and [facility] [address] [place] Erosive es ophagitis K22.10 [address] [place] [address] Mar, [facility] [address] [place] [address] [place] [address] Jun, [facility] [address] [place] [address] [place] [address] Apr, [facility] [address] [place] [address] [facility] [address] Apr, Epigastr ic abdominal pain [facility] [address] [place] R10.13 and Early satiety [address] R68.81 [facility] Outpatient [address] Apr, Other esophagit is K20.8 ; [place] [id number] Gastritis K29.70 ; Other diseases of stom ach and duodenum K31.89 ; Gastric polyp K31.7 and Abdominal pain R10.9 [facility] [address] Apr, [facility] [address] [place] [address] [place] [address] Mar, Epigastr ic abdominal pain [facility] [address] [place] R10.13 ; W eight loss R63.[address] [id number] scan, gastrointestinal tract R93.[address] [place] [address] Mar, [facility] [address] [place] [address] [place] [address] May, [facility] [address] [place] [address] [facility] Outpatient [address] [facility] [place] May, [place] [phone] [place] [address] Mar, [facility] [address] [place] [address] [place] [address] Jan, Gastroes ophageal reflux [facility] [address] [place] disease, e sophagitis [address] presence not spe cified K21.9 ; Hypertension I 10 ; Encounter for sc reening for malignant neopla sm of colon Z12.11 and Encou nter for screening for ma lignant neoplasm of rect um Z12.12 IMMUNIZATIONS Vaccine Route Administration Date Status Influenza Unknown May 07, 2021 Administered Influenza Unknown Apr 03, 2019 Administered SOCIAL HISTORY Never Assessed REASON FOR REFERRAL FUNCTIONAL STATUS PLAN OF CARE Activity Details Follow Up 6 Months Reason: Pending Test XR GI SERIES Future/Pending Procedure UPPER GI ENDOSCOPY 20200329 Future/Pending Procedure UPPER GI ENDOSCOPY [id number] Future/Pending Procedure COLONOSCOPY [id number] VITAL SIGNS Weight 167 lbs 2021-05-14 Weight 170 lbs 2020-03-29 Weight 215 lbs 2016-02-12 Height 65 in 2021-05-14 Height 65 in 2020-03-29 Height 65 in 2016-02-12 BMI 27.79 kg/m2 2021-05-14 BMI 28.29 kg/m2 2020-03-29 BMI 35.77 kg/m2 2016-02-12 Heart Rate 100 /min 2016-02-12 Temperature 97.3 degrees Fahrenheit 2021-05-14 Temperature 98.2 degrees Fahrenheit 2020-03-29 Blood pressure systolic 000 mm Hg 2021-05-14 Blood pressure diastolic 000 mm Hg 2021-05-14 MEDICATIONS Medication Instructions Dosage Frequency Start End Duration Statu s Date Date Zolpidem Take 1 30 Active Tartrate 10 MG tablet by mouth at bedtime as needed Omeprazole 40 Orally Once a 1 24h May, day(s) Ac tive MG day 2020 traMADol HCl 50 Orally Once a 1 tablet as 24h Active MG day needed Carafate 1 GM Orally TID AC 1 pill Mar, day(s) Ac tive and QHS dissolved in 2019 30cc warm water Prilosec 20 MG Orally twice a 2 capsule 12h 10 day(s ) Active day Gabapentin 300 30 Active MG Dicyclomine HCl Orally QID prn 1-2 Apr, day(s) Active 10 MG abdominal 2019 pain--can take before meals as well Ambien 5 MG Orally Once a 1 tablet at 24h Ac tive day bedtime clonazePAM 1 MG (Schedule IV 30 Act emile Drug) TAKE 1 TABLET BY MOUTH TWICE A DAY NEEDED FOR ANXIETY ONLY Ketotifen INSTILL 1 30 Active Fumarate 0.025 DROP IN EACH % EYE two (2) times a day PROCEDURES Procedure Date Ordered Result Body Site UPPER GI ENDOSCOPY, BIOPSY Apr 13, 2020 BMI >=30 CALCUATE W/FOLLOWUP February 12, 2016 DOC MEDS VERIFIED W/PT OR RE Mar 29, 2020 DOC MEDS VERIFIED W/PT OR RE May 14, 2021 COLORECTAL CA SCREEN DOC REV February 12, 2016 COLORECTAL CA SCREEN DOC REV Mar 29, 2020 FLU IMM NO ORD/ADMIN DOC VANDANA February 12, 2016 BP SCR NOT PRFRM REC REASON NOS May 14, 2021 COLORECTAL CA SCREEN DOC REV May 14, 2021 BP SCR PRFRM RCMDD DEFIND SCR INTVL Mar 29, 2020 TOBACCO NON-USER May 14, 2021 TOBACCO NON-USER Mar 29, 2020 BP SCR PRFRM RCMDD DEFIND SCR INTVL February 12, 2016 TOBACCO NON-USER February 12, 2016 DOC MEDS VERIFIED W/PT OR RE February 12, 2016 RESULTS Name Result Date Reference Range XR GIAC 2020-04-19 NUC GASTRIC ANTRUM EMPTYING 2020-04-23 GI BIOPSY 2020-04-13 G.I. BIOPSY GI BIOPSY 2016-05-05 G.I. BIOPSY REASON FOR VISIT NO SHOW, Patient presents today for esophagitis, Patient presents today for diverticulitis, diverticulitis, abdominal pain, epigastric pain, wt loss, abn ct gi tract, for surgeron to be present , Patient presents today for F/U OFFICE VISIT, F/U OFFICE VISIT, I reschedule patient until May 17, RE: Results/patient called back, GERD, SCREENING, Wants to cancel her colonoscopy, screening colonoscopy, screening colonoscopy Insurance Providers [facility] Member Patient Patient Patient Patient Patient Subscriber Subscriber Subscriber Group Insurance Plan Plan Plan Plan ID Relationship Address Phone Name Date of ID Name Date of No Type Insurance Insurance Insurance Coverage to Subscriber Address Phone Name Dates MEDICARE [phone] MEDICARE self JESUS MANUEL 11 [id number] OF [place] [address] OF [facility] [id number] MEDICAID [phone] MEDICAID self JESUS MANUEL 11 [id number] OF [facility] [id number] [address] OF [facility] [place] [address] [facility] [id number] MEDICARE [phone] MEDICARE self JESUS MANUEL 11 [id number] OF [place] [address] OF [facility] [id number]
--- OUTSIDE RECORDS SUMMARY | 2022-05-02 21:43 | XMS_ITS | Continuity of Care Document ---
:1960 Author Organization [facility] Address [address] [place] [address]- Care Team Providers Name Role Phone Jayne Ozuna MD Primary Care Physician [place] [facility]21 - 07/19/21 [facility] [address] [place] [id number] Allergies, Adverse Reactions, Alerts Substance Reaction Severity Status predniSONE Severe anxiety (panic) Active Flexeril Palpitations Active Adhesive Bandage Active Medications Ambien Tablet See Instructions, 0, 0, 09/03/07 19:16:08, 5 mg By Mouth, Print EMA Number, Constant Indicator Start Date: 09/03/07 Status: OrderedFlonase 50 mcg/inh nasal spray 1 sprays, Nares, Both, 2 times a day, # 16 Gm, 0 Refills, Maintenance, 07/12/18 10:04:39 EST, [place] Start Date: 07/12/18 Status: OrderedGabapentin = 300 [...]
--- OUTSIDE RECORDS SUMMARY | 2022-05-02 21:43 | XMS_ITS | Continuity of Care Document ---
:1960 Author Organization [facility] Address [address] [place] [address]- Care Team Providers Name Role Phone Laith WICK, Jayne Crawford Primary Care Physician [place] [facility] [place] Date(s): 07/31/21 - 08/30/21 [facility] [address] [place] [id number] Allergies, Adverse Reactions, Alerts Substance Reaction [...] Gm, 0 Refills, Maintenance, 07/12/18 10:04:39 EST, [place] Start Date: 07/12/18 Status: OrderedGabapentin = 300 [...]
--- OUTSIDE RECORDS SUMMARY | 2022-05-02 21:43 | XMS_ITS | Continuity of Care Document ---
:1960 Author Organization [facility] Address [address] [place] [address]- Care Team Providers Name Role Phone Jayne Ozuna MD Primary Care Physician [id number] Date[facility]10[facility] - 06/09/[facility] [address] [place] [id number] Allergies, Adverse Reactions, Alerts Substance [...] Gm, 0 Refills, Maintenance, 07/12/18 10:04:39 EST, [place] Start Date: 07/12/18 Status: OrderedGabapentin = 300 [...]
--- OUTSIDE RECORDS SUMMARY | 2022-05-02 21:43 | XMS_ITS | Continuity of Care Document ---
:1960 Author Organization [facility] Address [address] [place] [address]- Care Team Providers Name Role Phone Laith WICK, Jayne Crawford Primary Care Physician En[place] [facility] Date(s): 06/11/21 - 09/13/21 [facility] [address] [place] [id number] Attending Physician: Sandra Joiner MD Admitting Physician: Sandra Joiner MD Allergies, Adverse Reactions, Alerts Substance Reaction Severity Status predniSONE Severe anxiety (panic) Active Flexeril Palpitations Active Adhesive Bandage Active Medications Ambien Tablet See Instructions, 0, 0, 09/03/07 19:16:08, 5 mg By Mouth, Print EMA Number, Constant Indicator Start Date: 09/03/07 Status: OrderedFlonase 50 mcg/inh nasal spray 1 sprays, Nares, Both, 2 times a day, # 16 Gm, 0 Refills, Maintenance, 07/12/18 10:04:39 EST, [place] Start Date: 07/12/18 Status: OrderedGabapentin = 300 [...]
--- OUTSIDE RECORDS SUMMARY | 2022-05-02 21:43 | XMS_ITS | Continuity of Care Document ---
:1960 Author Organization [facility] Address [address] [place] [address]- Care Team Providers Name Role Phone Laith WICK, Jayne Crawford Primary Care Physician Encounter [facility] Date(s): 08/07/21 - 09/06/21 [facility] [address] [place], [place] [id number] Allergies, Adverse Reactions, Alerts Substance Reaction Severity Status predniSONE Severe anxiety (panic) Active Flexeril Palpitations Active Adhesive Bandage Active Medications Ambien Tablet See Instructions, 0, 0, 09/03/07 19:16:08, 5 mg By Mouth, Print EMA Number, Constant Indicator Start Date: 09/03/07 Status: OrderedFlonase 50 mcg/inh nasal spray 1 sprays, Nares, Both, 2 times a day, # 16 Gm, 0 Refills, Maintenance, 07/12/18 10:04:39 EST, [place] Start Date: 07/12/18 Status: OrderedGabapentin = 300 [...]
[2022-05-02 22:20] VITALS: BP 143/72; PULSE 62; RESP 14; O2SAT 97
--- NOTE | 2022-05-02 22:44 | ED.FEMALEGU ---
HPI - Female Genitourinary General Chief complaint: Urogenital-Female Stated complaint: ? Urinary infection severe pain Time Seen by Provider: 05/02/22 22:39 Source: patient and family Mode of arrival: ambulatory History of Present Illness HPI Narrative: 61-year-old female with history of multiple intra-abdominal surgeries presents with lower abdominal/ bladder? pain that has been ongoing for almost 1 month. Patient states that she is on her 2nd course of antibiotics and that the 1st urine culture was positive for E coli that was sensitive for Macrobid. She then states that she had a recurrence of the pain and discomfort and is currently taking Macrobid. However, patient states that she has started to have lower abdominal pain again as well as foul-smelling urine. This is not been associated with nausea, vomiting, diarrhea and patient has continued to pass stool as well as flatus. She denies any fevers but states that she has chills associated with the pain. Related Data Home Medications Medication Instructions Recorded Confirmed clonazepam 1 mg tablet 1 mg PO DAILY 05/02/20 04/17/22 fluticasone propionate 50 1 spray intranasal BID 05/02/20 04/17/22 mcg/actuation nasal spray,suspension (Flonase Allergy Relief) zolpidem 10 mg tablet (Ambien) 10 mg PO BEDTIME PRN 05/02/20 04/17/22 dicyclomine 10 mg capsule 10 mg PO BID 05/03/20 04/17/22 esomeprazole magnesium 40 mg 40 mg PO BID 02/25/22 04/17/22 capsule,delayed release metoclopramide HCl 5 mg tablet 5 mg PO BID 02/25/22 04/17/22 cholestyramine (with sugar) 4 gram 0.5 ea PO BID 03/11/22 04/17/22 powder for susp in a packet omeprazole 40 mg capsule,delayed 40 mg PO BID 03/11/22 04/17/22 release sennosides 8.6 mg-docusate sodium 2 tab PO DAILY 03/11/22 04/17/22 50 mg tablet (Senna-Time S) venlafaxine 75 mg capsule,extended 225 mg PO QAM 03/11/22 04/17/22 release 24 hr Previous Rx's Medication Instructions Recorded dicyclomine 20 mg tablet 20 mg PO BID #14 tabs 02/25/22 sulindac 200 mg tablet 200 mg PO BID PRN pain (scale 04/28/22 score 7-10) 30 days #60 tabs phenazopyridine 200 mg tablet 200 mg PO TID PRN pain 6 doses #6 05/03/22 (Pyridium) tabs Allergies Allergy/AdvReac Type Severity Reaction Status Date / Time prednisone [PREDNISONE] Allergy Severe DEPRESSION/ Verified 04/17/22 14:39 ANXIETY adhesive tape AdvReac Severe Rash Verified 04/17/22 14:39 diphenhydramine AdvReac Intermediate TACHYCARDIA Verified 04/17/22 14:39 [From BENADRYL] Review of Systems Review of Systems: Pertinent positives and negatives as stated in HPI 10 point review of systems is otherwise negative. PMFSH Past Medical History Source: nursing notes reviewed Medical History Anxiety Chronic abdominal pain Depression Gastric dilation GERD with esophagitis Hypertension Overweight Surgical History History of back surgery History of sleeve gastrectomy Hx of cholecystectomy Hx of laparoscopic gastric banding Family History Family History Father No problems noted. Mother No problems noted. Brother No problems noted. Sister No problems noted. Son No problems noted. Daughter No problems noted. Daughter No problems noted. Social History Social History Alcohol intake: never Patient Tobacco Use Status: Never used Tobacco Use of substances other than those prescribed or required for medical reasons: No Advance Directives: No Patient : No Physical Exam Vital Signs: Vital Signs: Last Vital Signs Temp 98.9 F 05/02/22 19:31 Pulse 62 05/02/22 22:20 Resp 14 05/02/22 22:20 BP 143/72 H 05/02/22 22:20 Pulse Ox 97 05/02/22 22:20 O2 Del Method 05/02/22 22:20 BMI result Body Mass Index 29.1 VITAL SIGNS: Reviewed. GENERAL: Elevated BMI, Well developed, well nourished, in mild distress. HEAD: Normocephalic/atraumatic EYES: PERRLA, EOMI EARS: Ext canals without abnormality OROPHARYNX: no oral lesions noted, posterior pharynx clear LUNGS: Normal breath sounds. No adventitious sounds or accessory muscle use. SpO2<97> CARDIOVASCULAR: Regular rate and rhythm without noted murmurs ABDOMEN: Soft, mild tenderness on palpation over the suprapubic area, non-distended with bowel sounds. MUSCULOSKELETAL: No tenderness, deformities, or effusions noted on gross inspection. EXTREMITIES: No cyanosis, clubbing or edema. SKIN: Inspection of the skin reveals no rashes NEUROLOGIC: Alert and oriented x 4. Strength and sensation to light touch were grossly intact x 4. Course Course Course Narrative: 61-year-old female with history and clinical presentation suggestive of possible cystitis although on review of patient's urine results there is minimal evidence of UTI and on review of laboratory results there are no acute findings. Questioning possible bladder spasm, diverticulitis, renal colic, because patient is otherwise status post cholecystectomy/appendectomy. Lower clinical suspicion for SBO. Review of all investigations otherwise negative for acute findings, patient received Pyridium as well as Tylenol and CT scan negative for acute findings. All results discussed with her bedside she was discharged home with recommendations to continue with the course of antibiotics and follow-up with a doctor on Thursday morning. Patient already has Percocet at home for her use she was encouraged to add heating pad for additional symptom relief. MDM - Female Genitourinary Lab Data Result diagrams: 05/02/22 20:34 05/02/22 20:34 Labs: Lab Results 05/02/22 05/02/22 05/02/22 Range/Units 20:34 20:34 20:34 WBC 7.0 (4.8-10.8) X10*3/uL RBC 4.29 (4.20-5.50) X10*6/uL Hgb 12.1 (12.0-16.0) g/dl Hct 37.6 (37.0-47.0) % MCV 87.6 (80.0-98.0) fL MCH 28.2 (27.0-33.0) pg MCHC 32.2 (31.0-35.0) g/dl RDW 12.8 (11.0-16.0) % Plt Count 215 (160-400) X10*3/uL MPV 10.5 (9.4-12.3) fL Immature Gran % (Auto) 0.3 (0.0-0.4) % Neut % (Auto) 51.6 (45-73) % Lymph % (Auto) 33.0 (20-40) % [place] % (Auto) 9.9 (2-11) % Eos % (Auto) 4.6 H (0-4) % Baso % (Auto) 0.6 (0-2) % Lymph # (Auto) 2.3 (1.2-4.9) X10*3/uL [place] # (Auto) 0.7 (0.1-1.2) X10*3/uL Eos # (Auto) 0.3 (0.0-0.4) X10*3/uL Baso # (Auto) 0.0 (0.0-0.2) X10*3/uL Abs Immat Gran (auto) 0.02 (0.00-0.03) X10*3/uL Absolute Neuts (auto) 3.6 (2.0-8.3) x10*3/uL Absolute Nucleated RBC 0.000 (0.0-0.012) X10*3/uL Nucleated RBC % (auto) 0.0 (0.0-0.2) /100WBC Sodium 142 (135-145) mmol/L Potassium 4.1 (3.3-5.1) mmol/L Chloride 108 (96-108) mmol/L Carbon Dioxide 24 (22-29) mmol/L Anion Gap 14 (12-20) BUN 14 (9-16) mg/dL Creatinine 0.94 (0.5-1.4) mg/dL Estim Creat Clear Calc 67.1 Estimated GFR > 60 Random Glucose 92 (60-115) mg/dL Calcium 9.1 (8.4-10.2) mg/dL Total Bilirubin 0.2 (0.0-1.0) mg/dL AST 17 (5-31) U/L ALT 14 (0-31) U/L Alkaline Phosphatase 117 (39-117) U/L Total Protein 7.1 (6.5-8.0) g/dL Albumin 4.4 (3.5-5.0) g/dL Urine Color Yellow Urine Appearance Clear Urine pH 6.0 (5.0-9.0) Ur Specific [place] 1.015 (1.005-1.025) Urine Protein Negative (Neg-Trace) mg/dL Urine Glucose (UA) Negative (Negative) mg/dL Urine Ketones Trace (Negative) mg/dL Urine Blood Negative (Negative) Urine Nitrite Negative (Negative) Ur Leukocyte Esterase Small (1+) H (Negative) Urine RBC 0-2 (0-2) /HPF Urine WBC 0-5 (0-5) /HPF Ur Squamous Epith Cells 3-5 (0-2) /HPF Urine Bacteria None Seen (None Seen) Hyaline Casts 0-2 (0-2) /LPF Discharge Plan Discharge Clinical Impression: Suprapubic pain, UTI (urinary tract infection), Constipation Patient Disposition: Home, Self-Care Instructions: Constipation (ED), Urinary Tract Infection in Women (ED), High Fiber Diet (ED), Heat Pack Application (ED) Additional Instructions: 1. Resume all home medications as prescribed. Recommend the use of a heating pad for additional symptom relief. 2. You have been placed on a medication to help out with your bladder discomfort and it will change the color of your urine. 3. Follow-up with your primary care provider Thursday morning. Return to the ER for worsening symptoms. Prescriptions: New phenazopyridine [Pyridium] 200 mg tablet 200 mg PO TID PRN (Reason: pain) Qty: 6 0RF No Action sulindac 200 mg tablet 200 mg PO BID PRN (Reason: pain (scale score 7-10)) 30 Days Qty: 60 0RF Rx Instructions: Take it with food. Avoid other NSAIDs. dicyclomine 20 mg tablet 20 mg PO BID Qty: 14 0RF dicyclomine 10 mg capsule 10 mg PO BID zolpidem [Ambien] 10 mg tablet 10 mg PO BEDTIME PRN clonazepam 1 mg tablet 1 mg PO DAILY fluticasone propionate [Flonase Allergy Relief] 50 mcg/actuation spray,suspension 1 spray intranasal BID Rx Instructions: administer into each nostril esomeprazole magnesium 40 mg capsule,delayed release(DR/EC) 40 mg PO BID metoclopramide HCl 5 mg tablet 5 mg PO BID cholestyramine (with sugar) 4 gram powder in packet 0.5 ea PO BID sennosides-docusate sodium [Senna-Time S] 8.6-50 mg tablet 2 tab PO DAILY omeprazole 40 mg capsule,delayed release(DR/EC) 40 mg PO BID venlafaxine 75 mg capsule,extended release 24hr 225 mg PO QAM Referrals: Jayne Ozuna MD [Primary Care Provider] -
[2022-05-02] MEDS: Phenazopyridine HCL 200 MG TABLET PO (22:45)
[2022-05-02] MEDS: Acetaminophen 325 MG TABLET 975 MG PO (22:49)
[2022-05-03] MEDS: Ketorolac Tromethamine 15 MG/ML VIAL IM (00:28)
[2022-05-03] MEDS: Dicyclomine HCl 10 MG CAPSULE PO (00:28)
== END 2022-05-03 00:35 | disposition home or self-care (01) ==
PROVIDERS: Emergency Provider Student in an Organized Health Care Education/Training Program; PCP Internal Medicine
DX: N39.0 Urinary tract infection, site not specified (principal); K59.00 Constipation, unspecified; Z79.899 Other long term (current) drug therapy
CPT/HCPCS: 36415; 74176; 80053; 81001; 85025; 87086; 96372; 99284; J1885

== ENCOUNTER 2022-06-04 05:27 | Outpatient (REF) | payer OTHER, SELFPAY ==
--- NOTE | ~2022-06-04 | FL_ITS ---
EXAMINATION: XR FLUOROSCOPY WITH IMAGES CLINICAL INFORMATION: M25.511 - Pain in right shoulder COMPARISON: None. TECHNIQUE: Fluoroscopy performed by Dr. Saleem Khalil. Fluoroscopy time: 0.2 minutes. Cumulative Dose: 4.57 mGy. DAP: 0.382 Gy-cm2. Images: 1. FINDINGS: There is a spinal needle with tip overlying the posterior upper scapular adjacent to superior aspect scapular spine. There is contrast present horizontally oriented. No visible vascular communication. Mild degenerative changes acromioclavicular joint again seen. FL/FL guidance in treatment room IMPRESSION: Fluoroscopy for pain management procedure.
== END 2022-06-04 05:28 | disposition home or self-care (01) ==
LOC: HO.RADIR 05:27
PROVIDERS: PCP Internal Medicine; Visit Provider Internal Medicine
DX: M25.511 Pain in right shoulder (principal)
CPT/HCPCS: 64418

== ENCOUNTER → 2022-06-05 08:17 | Outpatient (BNVA) | payer OTHER, SELFPAY | PROVIDERS: PCP Internal Medicine; Visit Provider Nurse Practitioner Family | DX: M25.511 Pain in right shoulder (principal); M25.561 Pain in right knee; M25.521 Pain in right elbow | CPT/HCPCS: Q3014 ==

== ENCOUNTER 2022-07-23 06:10 | Outpatient (REF) | payer OTHER, SELFPAY ==
--- NOTE | ~2022-07-23 | FL_ITS ---
EXAMINATION: XR FLUOROSCOPY WITH IMAGES CLINICAL INFORMATION: M25.511 - Pain in right shoulder COMPARISON: Right shoulder radiographs 02/26/2022 TECHNIQUE: Fluoroscopy Supervised By: Dr. Saleem Khalil. Fluoroscopy Time: 0.3 minutes. Cumulative Dose: 6.35 mGy. DAP: 0.754 Gycm2. Images: 1. FINDINGS: There is spinal needle overlying the posterior upper right scapular likely just superior to the scapular spine. There is contrast horizontally oriented without vascular communication. There are degenerative changes acromioclavicular joint again noted. FL/FL guidance in treatment room IMPRESSION: Fluoroscopy for pain management procedure.
== END 2022-07-23 06:11 | disposition home or self-care (01) ==
LOC: CF 06:10
PROVIDERS: Visit Provider Internal Medicine
DX: M25.511 Pain in right shoulder (principal); M25.512 Pain in left shoulder
CPT/HCPCS: 64418; J3301

== ENCOUNTER → 2022-08-01 11:58 | Outpatient (BNVA) | payer OTHER, SELFPAY | PROVIDERS: PCP Internal Medicine; Visit Provider Internal Medicine | DX: M25.511 Pain in right shoulder (principal); G89.29 Other chronic pain | CPT/HCPCS: Q3014 ==

== ENCOUNTER 2022-09-03 13:57 | Day surgery (SDC) | payer OTHER, SELFPAY ==
--- NOTE | ~2022-09-03 | FL_ITS ---
EXAMINATION: XR FLUOROSCOPY WITH IMAGES CLINICAL INFORMATION: Right splint simulator. COMPARISON: 07/23/2022 TECHNIQUE: Fluoroscopy Supervised By: Dr. Saleem Khalil Fluoroscopy Time: 0.2 minutes Cumulative Dose: 2.09 mGy DAP: 0.291 Gycm2 Images: 2 FINDINGS: Images demonstrate needle medial to the coracoid. FL/FL guidance in OR IMPRESSION: Intraoperative fluoroscopy for pain management procedure.
[2022-09-03 14:10] VITALS: BMI 28.3
[2022-09-03] MEDS: LORazepam 1 MG TABLET PO (15:08)
[2022-09-03 15:50] VITALS: BP 114/76; PULSE 71; RESP 16; TEMP 37.1; O2SAT 98
--- NOTE | 2022-09-03 15:54 | P.OP_ITS ---
Operative Note Operative Note Date of Service: 09/03/22 Narrative: Peripheral Nerve Stimulation Temporary Lead Placement, Fluoroscopy-Guided, Suprascapular Nerve, Right ? After the risks, benefits and alternatives were discussed with the patient and informed consent was obtained, patient was placed in the sitting position and padded to foster comfort. Appropriate skin and bony landmarks were identified using fluoroscopy, including the left suprascapular notch. The skin overlying the needle entry site was prepped and draped in sterile fashion. After identifying and marking the intended target along the course of the suprascapular nerve, the skin around the planned entry point and the subcutaneous tissues were injected with local anesthetic. An introducer needle and stimulating probe were assembled, inserted and advanced along the intended course of the suprascapular nerve, taking care to maintain the proper depth of insertion as the introducer was advanced under fluoroscopy guidance. Bony contact was achieved with the scapula and maintained throughout. The introducer needle was delivered to a location in proximity to the nerve. Multiple stimulation parameters were used to deliver stimulation to the suprascapular nerve in concert with stimulating at multiple positions around the nerve. Nerve target acquisition was confirmed noting generation of sensory and mild motor effects (paresthesia, muscle tension, etc) in the shoulder and proximal arm; corresponding to the distribution of the suprascapular nerve. Various electrical parameter combinations were tested, and the lead location was adjusted (physically relocated under image guidance) until the patient indicated shoulder paresthesia and tension overlapping the distribution of the patient?s typical region of pain. The stimulating probe was removed from the introducer and a percutaneous lead was guided through the needle and delivered to a location in similar proximity to the nerve. Final location was verified with electrical stimulation and documented. The introducer needle was removed, and the exposed end of the percutaneous lead was attached to an external stimulator unit. Various electrical parameter combinations were again tested until the patient indicated paresthesia and muscle tension overlapping the distribution of the patient?s typical region of pain. After confirming that lead impedance was in the normal range, the external unit was detached, the needle was removed, and the lead was anchored at the skin. The needle entry site was occluded with dermabond. The lead was threaded into the connector block and electrical continuity and desired patient response was confirmed. The connector block was attached to the external stimulator unit. The site was covered with a sterile occlusive dressing.? A final image was taken to document final placement. The patient was observed for stability of vital signs and comfort. She received one tablet of Tramadol 50mg in the PACU for post- procedure discomfort.
--- NOTE | 2022-09-03 15:54 | MHC.SHP ---
Pre-Procedural Eval Section A Date of Service: 09/03/22 Changes since office visit: Yes Patient answered all questions The History & Physical has been completed within 30 days and I have reviewed it.: No Section B Chief Complaint: Chronic intractable pain in right shoulder Relevant Family History (Specify if Yes): No Relevant Social History: None Present Medications: see Short Stay Collaborative assessment Medical History: No relevant PMH History of Previous Operations: No relevant previous surgery Allergies: Allergies Allergy/AdvReac Type Severity Reaction Status Date / Time prednisone [PREDNISONE] Allergy Severe DEPRESSION/ Verified 07/23/22 09:57 ANXIETY adhesive tape AdvReac Severe Rash Verified 07/23/22 09:57 diphenhydramine AdvReac Intermediate TACHYCARDIA Verified 07/23/22 09:57 [From BENADRYL] Review of Systems Sugical H&P ROS: Negative: Constitution, Cardiovascular and Respiratory Exam Surgical H&P Exam: Normal: HEENT, Normal: Heart and Normal: Lungs Plan Diagnosis/Plan: Unchanged I have reviewed the history and physical and performed a pertinent physical examination on my patient. No changes have occurred unless specified. Time Spent With Patient Time: Total time managing care of this patient today ____ minutes.
--- NOTE | 2022-09-03 15:54 | PM.OP ---
Brief Operative Note Date of Service: 09/03/22 Pre-op diagnosis: Chronic right shoulder pain Post-op diagnosis: same Procedure: Temporary right suprascapular nerve stimulator placement Implants: [employer] PNS lead Surgeon: Saleem Khalil MD Anesthesia: local Was an Mud Tank Operator used for this Procedure?: No Estimated blood loss (mL): 1 Pathology: none sent Condition: stable Disposition: same day
[2022-09-03 16:05] VITALS: BP 105/69; PULSE 73; RESP 16; O2SAT 96
[2022-09-03] MEDS: traMADoL HCL 50 MG TABLET PO (16:23)
== END 2022-09-03 16:42 | disposition home or self-care (01) ==
PROVIDERS: PCP Internal Medicine; Visit Provider Internal Medicine
PROC: (CPT 64555; principal; 2022-09-03 15:00)
DX: M25.511 Pain in right shoulder (principal); G89.29 Other chronic pain; I10 Essential (primary) hypertension; K21.00 Gastro-esophageal reflux disease with esophagitis, without bleeding; F32.A Depression, unspecified; F41.1 Generalized anxiety disorder; Z88.8 Allergy status to other drugs, medicaments and biological substances; Z91.040 Latex allergy status; Z98.890 Other specified postprocedural states
CPT/HCPCS: 64555; C1778

== ENCOUNTER → 2022-09-08 13:15 | Outpatient (BNVA) | payer OTHER, SELFPAY | PROVIDERS: PCP Internal Medicine; Visit Provider Internal Medicine | DX: M25.511 Pain in right shoulder (principal) | CPT/HCPCS: Q3014 ==

== ENCOUNTER → 2022-09-29 11:23 | Outpatient (BNVA) | payer OTHER, SELFPAY | PROVIDERS: PCP Internal Medicine; Visit Provider Internal Medicine | DX: M25.511 Pain in right shoulder (principal); M25.512 Pain in left shoulder; Z96.82 Presence of neurostimulator | CPT/HCPCS: 99212 ==